=== PATIENT | female | born 1955 ===

== ENCOUNTER 2017-11-26 15:37 | Inpatient (IN) ==
[2017-11-26] MEDS ORDERED: ACETAMINOPHEN 500 MG TABLET PO STA (16:14)
[2017-11-26] MEDS ORDERED: ACETAMINOPHEN 500 MG TABLET ONE (16:15)
[2017-11-26] MEDS ORDERED: ONDANSETRON 4 MG/2 ML VIAL ONE ×2 (16:59→17:55)
[2017-11-26] MEDS ORDERED: DEXTROSE 50% 25 GM/50 ML VIAL IV PRN (17:11)
[2017-11-26] MEDS ORDERED: GLUCAGON 1 MG VIAL IM PRN (17:11)
[2017-11-26] MEDS ORDERED: MORPHINE 2 MG/1 ML SYRINGE IV STA (17:53)
[2017-11-26] MEDS ORDERED: ONDANSETRON 4 MG/2 ML VIAL IV STA (17:53)
[2017-11-26] MEDS ORDERED: MORPHINE 2 MG/1 ML SYRINGE ONE (17:55)
[2017-11-26 18:25] LABS: Troponin I Only 0.096 NG/ML (0.00-0.045)
[2017-11-26] MEDS: INSULIN REGULAR 100 UNIT/ML SUBCUT SCH (21:08)
[2017-11-26] MEDS: ACETAMINOPHEN 325 MG TABLET PO PRN (21:11)
[2017-11-27] MEDS: ACETAMINOPHEN 325 MG TABLET PO PRN ×2 (00:30→06:17)
[2017-11-27] MEDS: cefTRIAXone 1,000 MG in SYRINGE 1 EACH IV SCH (01:24)
[2017-11-27 03:33] LABS: Basophils % 0.1 % (0.0-0.8); Hematocrit 37.2 VOL% (35.7-47.0); Hemoglobin 12.6 GM/DL (12.0-16.0); Immature Granulocytes % 0.5 %; Immature Granulocytes Absolute 0.09 #; Lymphocytes # 0.6 10*3/uL (1.4-4.0); Lymphocytes % 3.6 % (21.3-54.2); Mean Corpuscular HGB Conc 33.9 GM/DL (32-36); Mean Corpuscular Hemoglobin 39 PG (27-34); Mean Corpuscular Volume 114.1 FL (87-102); Mean Platelet Volume 10.1 FL (9.6-12.0); Monocytes % 6.2 % (1.7-12.7); Neutrophils # 14.8 10*3/uL (1.4-7.4); Neutrophils % 89.6 % (38.7-73.9); Red Blood Count 3.26 MC/CUMM (3.8-5.5); Red Cell Distribution Width 13.5 % (9.3-17.3); White Blood Count 16.5 T/CUMM (4-12)
[2017-11-27 03:37] LABS: Platelet Count 116 T/CUMM (130-400)
[2017-11-27 03:59] LABS: Band Neutrophils 4 % (0-10); Lymphocytes 2 % (20-55); Metamyelocytes 1 %; Segmented Neutrophils 89 % (50-85); Total Cells Counted 100
[2017-11-27 04:00] LABS: Albumin 3.3 G/DL (3.4-5.0); Bilirubin,Total 0.5 MG/DL (0.2-1.0); Calcium 7.8 MG/DL (8.5-10.1); Osmolality,Calculated 284.2 MOS/KG (273-304); Potassium 5.9 MMOL/L (3.5-5.1); Total Protein 7.8 G/DL (6.4-8.3)
[2017-11-27 04:01] LABS: Hypochromasia Slight; Platelet Estimate Normal
[2017-11-27] MEDS: INSULIN REGULAR 100 UNIT/ML SUBCUT SCH ×4 (09:03→23:20)
[2017-11-27] MEDS: PANTOPRAZOLE 40 MG TABLET PO SCH (12:11)
[2017-11-27] MEDS ORDERED: VANCOMYCIN INJ 1,000 MG in SODIUM CHLORIDE 0.9% 250 ML IV ONE (15:06)
[2017-11-28] MEDS: cefTRIAXone 1,000 MG in SYRINGE 1 EACH IV SCH (01:00)
[2017-11-28] MEDS ORDERED: LIDOCAINE 1% 20 ML VIAL IM ONE (02:00)
[2017-11-28] MEDS: cefTRIAXone 1,000 MG VIAL IM SCH (03:10)
[2017-11-28 05:03] LABS: Basophils % 0.1 % (0.0-0.8); Eosinophils % 0.1 % (0.00-10.9); Hematocrit 35.5 VOL% (35.7-47.0); Hemoglobin 11.7 GM/DL (12.0-16.0); Immature Granulocytes % 1.1 %; Immature Granulocytes Absolute 0.17 #; Lymphocytes # 1.1 10*3/uL (1.4-4.0); Lymphocytes % 7.5 % (21.3-54.2); Mean Corpuscular Hemoglobin 38 PG (27-34); Mean Corpuscular Volume 115.3 FL (87-102); Mean Platelet Volume 10.5 FL (9.6-12.0); Monocytes # 1.2 10*3/uL (0.11-0.8); Monocytes % 7.7 % (1.7-12.7); Neutrophils # 12.5 10*3/uL (1.4-7.4); Neutrophils % 83.5 % (38.7-73.9); Platelet Count 101 T/CUMM (130-400); Red Blood Count 3.08 MC/CUMM (3.8-5.5); Red Cell Distribution Width 13.5 % (9.3-17.3)
[2017-11-28 05:26] LABS: Band Neutrophils 2 % (0-10); Giant Platelets Few; Hypochromasia 1+; Lymphocytes 4 % (20-55); Ovalocytes Slight; Platelet Estimate Decreased; Segmented Neutrophils 84 % (50-85); Total Cells Counted 100
[2017-11-28] MEDS: ONDANSETRON 4 MG/2 ML VIAL IV PRN ×2 (08:15→23:30)
[2017-11-28] MEDS ORDERED: VANCOMYCIN INJ 1,000 MG in SODIUM CHLORIDE 0.9% 250 ML IV ONE (08:30)
[2017-11-28] MEDS: INSULIN REGULAR 100 UNIT/ML SUBCUT SCH ×3 (13:33→21:41)
[2017-11-28] MEDS: diphenhydrAMINE 2% CREAM 28 GM TUBE TOP PRN (15:15)
[2017-11-28] MEDS ORDERED: VANCOMYCIN 1,000 MG VIAL ONE (16:52)
[2017-11-28] MEDS: PANTOPRAZOLE 40 MG TABLET PO SCH (17:15)
[2017-11-28] MEDS ORDERED: SEVOFLURANE 1 UNIT/15 MINUTE INH ONE (18:05)
[2017-11-28] MEDS ORDERED: fentaNYL 100 MCG/2 ML VIAL ONE (18:05)
[2017-11-28] MEDS ORDERED: SUCCINYLCHOLINE 200 MG/10 ML VIAL ONE (18:05)
[2017-11-28] MEDS ORDERED: ROCURONIUM 100 MG/10 ML VIAL IV ONE (18:05)
[2017-11-28] MEDS ORDERED: ACETAMINOPHEN 1,000 MG/100 ML VIAL IV ONE (18:05)
[2017-11-28] MEDS ORDERED: SODIUM CHLORIDE 0.9% 1,000 ML IV ONE (18:05)
[2017-11-28] MEDS ORDERED: ONDANSETRON 4 MG/2 ML VIAL ONE ×2 (18:05→18:32)
[2017-11-28] MEDS ORDERED: PROPOFOL 200 MG/20 ML VIAL IV ONE (18:05)
[2017-11-28] MEDS: HYDROmorphone 2 MG/1 ML VIAL IV PRN ×4 (18:30→18:54)
[2017-11-28] MEDS ORDERED: ONDANSETRON 4 MG/2 ML VIAL IV PRN (18:30)
[2017-11-28] MEDS ORDERED: HYDROmorphone 2 MG/1 ML VIAL ONE (18:58)
[2017-11-29] MEDS: cefTRIAXone 1,000 MG VIAL IM SCH (02:49)
[2017-11-29] MEDS: cefTRIAXone 1,000 MG in SYRINGE 1 EACH IV SCH (04:54)
[2017-11-29] MEDS: ONDANSETRON ODT 4 MG TABLET PO PRN ×3 (07:46→17:44)
[2017-11-29] MEDS: INSULIN REGULAR 100 UNIT/ML SUBCUT SCH ×4 (07:48→21:16)
[2017-11-29] MEDS: PANTOPRAZOLE 40 MG TABLET PO SCH (09:43)
[2017-11-29] MEDS ORDERED: Propylene Glycol/Peg 400 [Systane Gel Drops] 1 DROP BOTH EYES PRN (12:03)
[2017-11-29] MEDS ORDERED: MIDODRINE 5 MG TABLET PO SCH (12:03)
[2017-11-29] MEDS: SEVELAMER CARBONATE 800 MG TABLET PO SCH ×2 (13:07→17:42)
[2017-11-29] MEDS: DOCUSATE SODIUM 100 MG CAPSULE PO SCH (21:33)
[2017-11-30] MEDS: cefTRIAXone 1,000 MG in SYRINGE 1 EACH IV SCH (04:12)
[2017-11-30 06:42] LABS: Basophils % 0.1 % (0.0-0.8); Eosinophils # 0.2 10*3/uL (0.0-0.87); Eosinophils % 1.7 % (0.00-10.9); Hematocrit 29.3 VOL% (35.7-47.0); Hemoglobin 9.8 GM/DL (12.0-16.0); Immature Granulocytes % 0.8 %; Immature Granulocytes Absolute 0.08 #; Lymphocytes # 1.5 10*3/uL (1.4-4.0); Lymphocytes % 13.8 % (21.3-54.2); Mean Corpuscular HGB Conc 33.4 GM/DL (32-36); Mean Corpuscular Hemoglobin 38 PG (27-34); Mean Corpuscular Volume 114.9 FL (87-102); Monocytes # 0.7 10*3/uL (0.11-0.8); Monocytes % 6.7 % (1.7-12.7); Neutrophils # 8.1 10*3/uL (1.4-7.4); Neutrophils % 76.9 % (38.7-73.9); Platelet Count 126 T/CUMM (130-400); Red Blood Count 2.55 MC/CUMM (3.8-5.5); Red Cell Distribution Width 13.9 % (9.3-17.3); White Blood Count 10.6 T/CUMM (4-12)
[2017-11-30 07:00] LABS: Anisocytosis 1+; Macrocytosis 3+; Platelet Estimate Decreased
[2017-11-30] MEDS: INSULIN REGULAR 100 UNIT/ML SUBCUT SCH ×4 (10:23→22:27)
[2017-11-30] MEDS: SEVELAMER CARBONATE 800 MG TABLET PO SCH ×3 (10:23→18:07)
[2017-11-30] MEDS: ASPIRIN EC 81 MG TABLET PO SCH (10:25)
[2017-11-30] MEDS: MULTIVITAMIN (BEROCCA) TABLET PO SCH (10:25)
[2017-11-30] MEDS: glipiZIDE 5 MG TABLET PO SCH (10:25)
[2017-11-30] MEDS: PANTOPRAZOLE 40 MG TABLET PO SCH (10:25)
[2017-11-30] MEDS: ONDANSETRON ODT 4 MG TABLET PO PRN ×3 (10:25→19:16)
[2017-11-30] MEDS: DOCUSATE SODIUM 100 MG CAPSULE PO SCH ×2 (10:25→22:28)
[2017-12-01] MEDS: ONDANSETRON ODT 4 MG TABLET PO PRN (03:40)
[2017-12-01] MEDS: cefTRIAXone 1,000 MG in SYRINGE 1 EACH IV SCH (05:33)
[2017-12-01] MEDS: INSULIN REGULAR 100 UNIT/ML SUBCUT SCH ×4 (08:30→21:30)
[2017-12-01] MEDS ORDERED: EPOETIN ALFA 2,000 UNIT/1 ML VIAL IV SCH (10:05)
[2017-12-01] MEDS: SEVELAMER CARBONATE 800 MG TABLET PO SCH ×3 (10:36→17:45)
[2017-12-01] MEDS: DOCUSATE SODIUM 100 MG CAPSULE PO SCH ×2 (10:36→20:52)
[2017-12-01] MEDS: glipiZIDE 5 MG TABLET PO SCH (10:36)
[2017-12-01] MEDS: MULTIVITAMIN (BEROCCA) TABLET PO SCH (10:36)
[2017-12-01] MEDS: ASPIRIN EC 81 MG TABLET PO SCH (10:36)
[2017-12-01] MEDS: PANTOPRAZOLE 40 MG TABLET PO SCH (10:37)
[2017-12-01] MEDS: diphenhydrAMINE 2% CREAM 28 GM TUBE TOP PRN (10:37)
[2017-12-01] MEDS ORDERED: VANCOMYCIN INJ 1,250 MG in SODIUM CHLORIDE 0.9% 250 ML IV ONE (18:00)
[2017-12-02] MEDS: cefTRIAXone 1,000 MG in SYRINGE 1 EACH IV SCH (04:33)
[2017-12-02 08:10] LABS: Basophils % 0.3 % (0.0-0.8); Eosinophils # 0.2 10*3/uL (0.0-0.87); Eosinophils % 2.4 % (0.00-10.9); Hematocrit 32.2 VOL% (35.7-47.0); Hemoglobin 10.3 GM/DL (12.0-16.0); Immature Granulocytes Absolute 0.07 #; Lymphocytes # 1.5 10*3/uL (1.4-4.0); Lymphocytes % 22.8 % (21.3-54.2); Mean Corpuscular Hemoglobin 38 PG (27-34); Mean Corpuscular Volume 117.5 FL (87-102); Mean Platelet Volume 10.5 FL (9.6-12.0); Monocytes # 0.7 10*3/uL (0.11-0.8); Monocytes % 10.7 % (1.7-12.7); Neutrophils # 4.3 10*3/uL (1.4-7.4); Neutrophils % 62.8 % (38.7-73.9); Platelet Count 147 T/CUMM (130-400); Red Blood Count 2.74 MC/CUMM (3.8-5.5); Red Cell Distribution Width 13.5 % (9.3-17.3); White Blood Count 6.8 T/CUMM (4-12)
[2017-12-02 08:33] LABS: Calcium 7.7 MG/DL (8.5-10.1); Osmolality,Calculated 277.2 MOS/KG (273-304); Potassium 5.1 MMOL/L (3.5-5.1)
[2017-12-02 08:34] LABS: Eosinophils 1 % (0-10); Giant Platelets Few; Hypochromasia 1+; Lymphocytes 18 % (20-55); Platelet Estimate Normal; Segmented Neutrophils 79 % (50-85); Total Cells Counted 100
[2017-12-02] MEDS: ASPIRIN EC 81 MG TABLET PO SCH (09:02)
[2017-12-02] MEDS: MULTIVITAMIN (BEROCCA) TABLET PO SCH (09:02)
[2017-12-02] MEDS: DOCUSATE SODIUM 100 MG CAPSULE PO SCH ×2 (09:02→21:28)
[2017-12-02] MEDS: PANTOPRAZOLE 40 MG TABLET PO SCH (09:02)
[2017-12-02] MEDS: glipiZIDE 5 MG TABLET PO SCH (09:02)
[2017-12-02] MEDS: SEVELAMER CARBONATE 800 MG TABLET PO SCH ×3 (09:02→16:25)
[2017-12-02] MEDS: INSULIN REGULAR 100 UNIT/ML SUBCUT SCH ×4 (09:03→21:31)
[2017-12-02] MEDS: SILVER SULFADIAZINE 1% CREAM 25 GM TUBE TOP SCH ×2 (10:58→21:28)
[2017-12-03] MEDS: cefTRIAXone 1,000 MG in SYRINGE 1 EACH IV SCH (05:29)
[2017-12-03 07:35] VITALS: BP 161/76
[2017-12-03] MEDS: INSULIN REGULAR 100 UNIT/ML SUBCUT SCH ×2 (08:20→13:01)
[2017-12-03] MEDS: SEVELAMER CARBONATE 800 MG TABLET PO SCH ×2 (08:22→13:01)
[2017-12-03] MEDS: glipiZIDE 5 MG TABLET PO SCH (08:22)
[2017-12-03] MEDS: PANTOPRAZOLE 40 MG TABLET PO SCH (08:22)
[2017-12-03] MEDS: MULTIVITAMIN (BEROCCA) TABLET PO SCH (08:22)
[2017-12-03] MEDS: ASPIRIN EC 81 MG TABLET PO SCH (08:22)
[2017-12-03] MEDS: DOCUSATE SODIUM 100 MG CAPSULE PO SCH (08:22)
[2017-12-03] MEDS: SILVER SULFADIAZINE 1% CREAM 25 GM TUBE TOP SCH (08:23)
[2017-12-03] MEDS ORDERED: VANCOMYCIN INJ 1,000 MG in SODIUM CHLORIDE 0.9% 250 ML IV PRN (11:11)
== END 2017-12-03 15:14 | disposition home or self-care (01) | DRG 853 ==
LOC: EDUNIT# → N.ED 15:37 → N.EDINP 15:37 → N.TELEN 19:15 → SUATTDRO 11-27 15:02 → N.5E 11-29 12:10
PROVIDERS: ADMIT Internal Medicine; ATTEND Family Medicine

== ENCOUNTER 2019-05-27 06:16 | Inpatient (IN) ==
[2019-05-25 16:48] LABS: Basophils % 0.3 % (0.0-0.8); Eosinophils # 0.1 10*3/uL (0.0-0.87); Eosinophils % 1.9 % (0.00-10.9); Hematocrit 29.9 VOL% (35.7-47.0); Hemoglobin 9.7 GM/DL (12.0-16.0); Immature Granulocytes % 0.3 %; Immature Granulocytes Absolute 0.02 #; Lymphocytes # 1.6 10*3/uL (1.4-4.0); Lymphocytes % 22.2 % (21.3-54.2); Mean Corpuscular HGB Conc 32.4 GM/DL (32-36); Mean Corpuscular Volume 109.5 FL (87-102); Mean Platelet Volume 10.1 FL (9.6-12.0); Monocytes % 8.4 % (1.7-12.7); Neutrophils % 66.9 % (38.7-73.9); Platelet Count 135 T/CUMM (130-400); Red Blood Count 2.73 MC/CUMM (3.8-5.5); Red Cell Distribution Width 15.3 % (9.3-17.3); White Blood Count 7.3 T/CUMM (4-12)
[2019-05-25 17:03] LABS: Calcium 8.3 MG/DL (8.5-10.1); Osmolality,Calculated 295.1 MOS/KG (273-304)
[~2019-05-27 06:16] MED LIST: ceFAZolin 1,000 MG VIAL ONE
[2019-05-27] MEDS ORDERED: ceFAZolin 1,000 MG in SYRINGE 1 EACH IV ONE (06:30)
[2019-05-27] MEDS ORDERED: DEXAMETHASONE 4 MG/1 ML VIAL ONE ×2 (07:09→13:24)
[2019-05-27] MEDS ORDERED: BUPIVACAINE MPF 0.25% 30 ML VIAL ONE (07:10)
[2019-05-27] MEDS ORDERED: SCOPOLAMINE 1.5 MG PATCH TRANSDERM ONE ×2 (07:25→07:49)
[2019-05-27] MEDS ORDERED: DIAZEPAM 5 MG TABLET PO ONE (07:25)
[2019-05-27] MEDS ORDERED: FAMOTIDINE 20 MG TABLET PO ONE (07:25)
[2019-05-27] MEDS ORDERED: SODIUM CHLORIDE 0.9% 250 ML IV SCH (07:30)
[2019-05-27] MEDS ORDERED: FAMOTIDINE 20 MG TABLET ONE (07:49)
[2019-05-27] MEDS ORDERED: DIAZEPAM 5 MG TABLET ONE (07:49)
[2019-05-27] MEDS ORDERED: MIDAZOLAM 2 MG/2 ML VIAL ONE (09:11)
[2019-05-27] MEDS ORDERED: LIDOCAINE 1% 20 ML VIAL ONE (09:57)
[2019-05-27] MEDS ORDERED: ISOSULFAN BLUE 5 ML VIAL SUBCUT ONE (09:57)
[2019-05-27] MEDS ORDERED: TISSUE ADHESIVE 1 EACH APPLICATOR TOP ONE (09:57)
[2019-05-27] MEDS ORDERED: BUPIVACAINE 0.5% 50 ML VIAL ONE (09:57)
[2019-05-27] MEDS ORDERED: ACETAMINOPHEN 325 MG TABLET PO PRN (13:11)
[2019-05-27] MEDS ORDERED: HYDROmorphone 2 MG/1 ML VIAL IV PRN ×2 (13:11)
[2019-05-27] MEDS ORDERED: BISACODYL 5 MG TABLET PO PRN (13:11)
[2019-05-27] MEDS ORDERED: ALBUTEROL/IPRATROPIUM 3 ML NEB RESP TX PRN (13:11)
[2019-05-27] MEDS ORDERED: GLUCAGON 1 MG VIAL IM PRN (13:19)
[2019-05-27] MEDS ORDERED: DEXTROSE 10% 25 GM/250 ML BAG IV PRN (13:19)
[2019-05-27] MEDS ORDERED: PROPOFOL 200 MG/20 ML VIAL IV ONE (13:23)
[2019-05-27] MEDS ORDERED: PHENYLEPHRINE 10 MG/1 ML VIAL IV ONE (13:24)
[2019-05-27] MEDS ORDERED: PHENYLEPHRINE 1 MG/10 ML SYRINGE IV ONE (13:24)
[2019-05-27] MEDS ORDERED: SEVOFLURANE 1 UNIT/15 MINUTE INH ONE (13:24)
[2019-05-27] MEDS ORDERED: fentaNYL 100 MCG/2 ML VIAL ONE (13:24)
[2019-05-27] MEDS ORDERED: MIDODRINE 5 MG TABLET PO PRN (13:30)
[2019-05-27] MEDS ORDERED: ONDANSETRON 4 MG/2 ML VIAL IV PRN (13:32)
[2019-05-27] MEDS ORDERED: HYDROmorphone 2 MG/1 ML VIAL ONE (13:43)
[2019-05-27] MEDS ORDERED: ONDANSETRON 4 MG/2 ML VIAL ONE (13:43)
[2019-05-27] MEDS: HYDROmorphone 2 MG/1 ML VIAL IV PRN ×3 (13:46→14:04)
[2019-05-27] MEDS: LACTATED RINGERS 1,000 ML IV SCH ×2 (16:34→23:43)
[2019-05-27] MEDS: SEVELAMER CARBONATE 800 MG TABLET PO SCH (17:21)
[2019-05-27] MEDS: INSULIN LISPRO 100 UNIT/ML SUBCUT SCH (17:21)
[2019-05-27] MEDS: ONDANSETRON 4 MG/2 ML VIAL IV PRN (18:32)
[2019-05-27] MEDS: DOCUSATE SODIUM 100 MG CAPSULE PO SCH (21:08)
[2019-05-27] MEDS: CARVEDILOL 12.5 MG TABLET PO SCH (21:09)
[2019-05-27] MEDS: ceFAZolin 2,000 MG in PREMIX 1 EACH IV SCH (21:09)
[2019-05-28 05:18] LABS: Basophils % 0.1 % (0.0-0.8); Immature Granulocytes % 0.4 %; Immature Granulocytes Absolute 0.04 #; Lymphocytes # 0.6 10*3/uL (1.4-4.0); Lymphocytes % 5.7 % (21.3-54.2); Mean Corpuscular Volume 112.6 FL (87-102); Mean Platelet Volume 10.5 FL (9.6-12.0); Monocytes % 5.4 % (1.7-12.7); Neutrophils % 88.4 % (38.7-73.9); Platelet Count 141 T/CUMM (130-400); Red Blood Count 2.22 MC/CUMM (3.8-5.5); Red Cell Distribution Width 14.6 % (9.3-17.3); White Blood Count 10.1 T/CUMM (4-12)
[2019-05-28 05:44] LABS: Hypochromasia 1+; Ovalocytes Slight; Platelet Estimate Normal
[2019-05-28 05:57] LABS: Calcium 7.3 MG/DL (8.5-10.1); Osmolality,Calculated 298.7 MOS/KG (273-304)
[2019-05-28] MEDS: ceFAZolin 2,000 MG in PREMIX 1 EACH IV SCH (06:02)
[2019-05-28] MEDS ORDERED: EPOETIN ALFA 2,000 UNIT/1 ML VIAL IV SCH (09:00)
[2019-05-28] MEDS: INSULIN LISPRO 100 UNIT/ML SUBCUT SCH ×3 (11:24→17:45)
[2019-05-28] MEDS: DOCUSATE SODIUM 100 MG CAPSULE PO SCH ×2 (11:25→21:02)
[2019-05-28] MEDS: PANTOPRAZOLE 40 MG TABLET PO SCH (11:25)
[2019-05-28] MEDS: glipiZIDE 10 MG TABLET PO SCH (11:25)
[2019-05-28] MEDS: ASPIRIN EC 81 MG TABLET PO SCH (11:25)
[2019-05-28] MEDS: MULTIVITAMIN (BEROCCA) TABLET PO SCH (11:25)
[2019-05-28] MEDS: SEVELAMER CARBONATE 800 MG TABLET PO SCH ×3 (11:25→18:00)
[2019-05-28] MEDS: LISINOPRIL 10 MG TABLET PO SCH (11:25)
[2019-05-28] MEDS: CARVEDILOL 12.5 MG TABLET PO SCH ×2 (11:25→21:02)
[2019-05-29 05:41] LABS: Basophils % 0.1 % (0.0-0.8); Eosinophils # 0.1 10*3/uL (0.0-0.87); Eosinophils % 0.7 % (0.00-10.9); Hematocrit 22.9 VOL% (35.7-47.0); Hemoglobin 7.3 GM/DL (12.0-16.0); Immature Granulocytes % 0.4 %; Immature Granulocytes Absolute 0.03 #; Lymphocytes # 1.6 10*3/uL (1.4-4.0); Lymphocytes % 20.5 % (21.3-54.2); Mean Corpuscular HGB Conc 31.9 GM/DL (32-36); Mean Corpuscular Volume 113.9 FL (87-102); Mean Platelet Volume 10.6 FL (9.6-12.0); Monocytes % 8.4 % (1.7-12.7); Neutrophils % 69.9 % (38.7-73.9); Platelet Count 124 T/CUMM (130-400); Red Blood Count 2.01 MC/CUMM (3.8-5.5); Red Cell Distribution Width 14.9 % (9.3-17.3); White Blood Count 7.6 T/CUMM (4-12)
[2019-05-29 06:08] LABS: Calcium 7.3 MG/DL (8.5-10.1); Osmolality,Calculated 297.3 MOS/KG (273-304)
[2019-05-29 06:10] LABS: Platelet Estimate Adequate
[2019-05-29 06:11] LABS: Anisocytosis 2+; Spherocytes Few
[2019-05-29] MEDS: INSULIN LISPRO 100 UNIT/ML SUBCUT SCH ×3 (08:19→16:44)
[2019-05-29] MEDS: SEVELAMER CARBONATE 800 MG TABLET PO SCH ×3 (08:20→17:26)
[2019-05-29] MEDS: LISINOPRIL 10 MG TABLET PO SCH (08:20)
[2019-05-29] MEDS: ASPIRIN EC 81 MG TABLET PO SCH (08:20)
[2019-05-29] MEDS: CARVEDILOL 12.5 MG TABLET PO SCH ×2 (08:20→21:08)
[2019-05-29] MEDS: glipiZIDE 10 MG TABLET PO SCH (08:20)
[2019-05-29] MEDS: DOCUSATE SODIUM 100 MG CAPSULE PO SCH ×2 (08:20→21:08)
[2019-05-29] MEDS: MULTIVITAMIN (BEROCCA) TABLET PO SCH (08:21)
[2019-05-29] MEDS: PANTOPRAZOLE 40 MG TABLET PO SCH (08:21)
[2019-05-29] MEDS ORDERED: SODIUM CHLORIDE 0.9% 1,000 ML IV PRN (09:05)
[2019-05-29 20:26] LABS: Hemoglobin 10.6 GM/DL (12.0-16.0)
[2019-05-30 06:00] LABS: Basophils % 0.2 % (0.0-0.8); Eosinophils % 0.1 % (0.00-10.9); Hematocrit 29.4 VOL% (35.7-47.0); Hemoglobin 9.4 GM/DL (12.0-16.0); Immature Granulocytes % 0.8 %; Immature Granulocytes Absolute 0.09 #; Lymphocytes # 0.4 10*3/uL (1.4-4.0); Lymphocytes % 3.7 % (21.3-54.2); Mean Corpuscular Volume 107.7 FL (87-102); Mean Platelet Volume 10.3 FL (9.6-12.0); Monocytes % 4.9 % (1.7-12.7); Neutrophils % 90.3 % (38.7-73.9); Platelet Count 130 T/CUMM (130-400); Red Blood Count 2.73 MC/CUMM (3.8-5.5); Red Cell Distribution Width 16.1 % (9.3-17.3); White Blood Count 11.2 T/CUMM (4-12)
[2019-05-30 06:23] LABS: Band Neutrophils 5 % (0-10); Lymphocytes 5 % (20-55); Segmented Neutrophils 84 % (50-85); Total Cells Counted 100
[2019-05-30 06:24] LABS: Anisocytosis 1+; Ovalocytes 1+; Platelet Estimate Adequate
[2019-05-30] MEDS: INSULIN LISPRO 100 UNIT/ML SUBCUT SCH ×3 (09:18→17:04)
[2019-05-30] MEDS: SEVELAMER CARBONATE 800 MG TABLET PO SCH ×3 (09:18→18:00)
[2019-05-30] MEDS: LISINOPRIL 10 MG TABLET PO SCH (09:18)
[2019-05-30] MEDS: MULTIVITAMIN (BEROCCA) TABLET PO SCH (09:18)
[2019-05-30] MEDS: DOCUSATE SODIUM 100 MG CAPSULE PO SCH ×2 (09:19→21:02)
[2019-05-30] MEDS: ASPIRIN EC 81 MG TABLET PO SCH (09:19)
[2019-05-30] MEDS: CARVEDILOL 12.5 MG TABLET PO SCH ×2 (09:19→21:02)
[2019-05-30] MEDS: glipiZIDE 10 MG TABLET PO SCH (09:19)
[2019-05-30] MEDS: PANTOPRAZOLE 40 MG TABLET PO SCH (09:19)
[2019-05-30] MEDS: ONDANSETRON 4 MG/2 ML VIAL IV PRN (17:30)
[2019-05-31] MEDS: SEVELAMER CARBONATE 800 MG TABLET PO SCH ×3 (08:00→17:23)
[2019-05-31] MEDS: INSULIN LISPRO 100 UNIT/ML SUBCUT SCH ×3 (08:02→17:18)
[2019-05-31] MEDS: PANTOPRAZOLE 40 MG TABLET PO SCH (09:00)
[2019-05-31] MEDS: LISINOPRIL 10 MG TABLET PO SCH (09:00)
[2019-05-31] MEDS: CARVEDILOL 12.5 MG TABLET PO SCH ×2 (09:00→20:32)
[2019-05-31] MEDS: DOCUSATE SODIUM 100 MG CAPSULE PO SCH ×2 (09:00→20:32)
[2019-05-31] MEDS: glipiZIDE 10 MG TABLET PO SCH (09:00)
[2019-05-31] MEDS: ASPIRIN EC 81 MG TABLET PO SCH (09:00)
[2019-05-31] MEDS: MULTIVITAMIN (BEROCCA) TABLET PO SCH (09:00)
[2019-06-01] MEDS: INSULIN LISPRO 100 UNIT/ML SUBCUT SCH ×2 (08:41→12:00)
[2019-06-01] MEDS: PANTOPRAZOLE 40 MG TABLET PO SCH (08:42)
[2019-06-01] MEDS: ASPIRIN EC 81 MG TABLET PO SCH (08:42)
[2019-06-01] MEDS: DOCUSATE SODIUM 100 MG CAPSULE PO SCH (08:42)
[2019-06-01] MEDS: SEVELAMER CARBONATE 800 MG TABLET PO SCH ×2 (08:42→12:00)
[2019-06-01] MEDS: MULTIVITAMIN (BEROCCA) TABLET PO SCH (08:42)
[2019-06-01] MEDS: glipiZIDE 10 MG TABLET PO SCH (08:42)
[2019-06-01] MEDS: LISINOPRIL 10 MG TABLET PO SCH (08:45)
[2019-06-01] MEDS: CARVEDILOL 12.5 MG TABLET PO SCH (08:46)
[2019-06-01 12:24] VITALS: BP 142/99
== END 2019-06-01 12:37 | disposition home health service (06) | DRG 579 ==
LOC: N.OR 06:16 → N.SDSINP 06:17 → EDSTATUS 08:15 → N.3E 10:18
PROVIDERS: ADMIT Surgery; ATTEND Surgery

== ENCOUNTER 2019-06-10 07:45 | Inpatient (IN) ==
[~2019-06-10 07:45] MED LIST changes: +ceFAZolin 1,000 MG in SYRINGE 1 EACH IV ONE
[2019-06-10] MEDS ORDERED: DIAZEPAM 5 MG TABLET PO ONE (08:11)
[2019-06-10] MEDS ORDERED: FAMOTIDINE 20 MG TABLET PO ONE (08:11)
[2019-06-10] MEDS ORDERED: ROPIVACAINE 0.5% 30 ML VIAL ONE (08:25)
[2019-06-10] MEDS ORDERED: LIDOCAINE 2% 5 ML VIAL ONE ×2 (08:25→11:13)
[2019-06-10] MEDS ORDERED: MIDAZOLAM 2 MG/2 ML VIAL ONE (08:25)
[2019-06-10] MEDS ORDERED: fentaNYL 100 MCG/2 ML VIAL ONE (08:25)
[2019-06-10] MEDS ORDERED: DEXAMETHASONE 4 MG/1 ML VIAL ONE (08:26)
[2019-06-10 08:37] LABS: Basophils % 0.3 % (0.0-0.8); Eosinophils # 0.1 10*3/uL (0.0-0.87); Eosinophils % 1.2 % (0.00-10.9); Hematocrit 27.4 VOL% (35.7-47.0); Hemoglobin 8.9 GM/DL (12.0-16.0); Immature Granulocytes % 0.5 %; Immature Granulocytes Absolute 0.05 #; Lymphocytes # 1.6 10*3/uL (1.4-4.0); Mean Corpuscular HGB Conc 32.5 GM/DL (32-36); Mean Corpuscular Volume 108.3 FL (87-102); Mean Platelet Volume 9.3 FL (9.6-12.0); Monocytes % 4.2 % (1.7-12.7); Neutrophils % 77.8 % (38.7-73.9); Platelet Count 173 T/CUMM (130-400); Red Blood Count 2.53 MC/CUMM (3.8-5.5); Red Cell Distribution Width 14.8 % (9.3-17.3)
[2019-06-10] MEDS ORDERED: DIAZEPAM 5 MG TABLET ONE (08:52)
[2019-06-10] MEDS ORDERED: FAMOTIDINE 20 MG TABLET ONE (08:52)
[2019-06-10 08:56] LABS: Calcium 8.3 MG/DL (8.5-10.1); Osmolality,Calculated 280.8 MOS/KG (273-304)
[2019-06-10] MEDS ORDERED: LIDOCAINE MPF 1% /EPI 30 ML VIAL ONE (09:51)
[2019-06-10] MEDS ORDERED: LACTATED RINGERS 1,000 ML IV SCH (10:00)
[2019-06-10] MEDS ORDERED: SEVOFLURANE 1 UNIT/15 MINUTE INH ONE (11:13)
[2019-06-10] MEDS ORDERED: GLYCOPYRROLATE 0.4 MG/2 ML VIAL ONE (11:13)
[2019-06-10] MEDS ORDERED: PROPOFOL 200 MG/20 ML VIAL IV ONE (11:13)
[2019-06-10] MEDS ORDERED: PHENYLEPHRINE 1 MG/10 ML SYRINGE IV ONE (11:13)
[2019-06-10] MEDS ORDERED: ONDANSETRON 4 MG/2 ML VIAL ONE (11:13)
[2019-06-10] MEDS ORDERED: ALBUTEROL/IPRATROPIUM 3 ML NEB RESP TX PRN (14:14)
[2019-06-10] MEDS ORDERED: DEXTROSE 10% 250 ML BAG IV PRN (14:14)
[2019-06-10] MEDS ORDERED: GLUCAGON 1 MG VIAL IM PRN (14:14)
[2019-06-10] MEDS ORDERED: MORPHINE 4 MG/1 ML VIAL IV PRN ×2 (14:14)
[2019-06-10] MEDS ORDERED: ACETAMINOPHEN 325 MG TABLET PO PRN (14:14)
[2019-06-10] MEDS ORDERED: ONDANSETRON 4 MG/2 ML VIAL IV PRN (14:14)
[2019-06-10] MEDS ORDERED: BISACODYL 5 MG TABLET PO PRN (14:14)
[2019-06-10] MEDS: INSULIN LISPRO 100 UNIT/ML SUBCUT SCH (18:39)
[2019-06-10] MEDS: ceFAZolin 2,000 MG in PREMIX 1 EACH IV SCH (20:43)
[2019-06-10] MEDS: SEVELAMER CARBONATE 800 MG TABLET PO SCH (22:09)
[2019-06-11] MEDS: ceFAZolin 2,000 MG in PREMIX 1 EACH IV SCH (04:56)
[2019-06-11 05:44] LABS: Basophils % 0.1 % (0.0-0.8); Eosinophils % 0.1 % (0.00-10.9); Hemoglobin 7.5 GM/DL (12.0-16.0); Immature Granulocytes % 0.6 %; Immature Granulocytes Absolute 0.06 #; Lymphocytes # 0.9 10*3/uL (1.4-4.0); Lymphocytes % 8.3 % (21.3-54.2); Mean Corpuscular HGB Conc 31.3 GM/DL (32-36); Mean Corpuscular Volume 108.6 FL (87-102); Mean Platelet Volume 9.9 FL (9.6-12.0); Monocytes % 5.5 % (1.7-12.7); Neutrophils % 85.4 % (38.7-73.9); Platelet Count 154 T/CUMM (130-400); Red Blood Count 2.21 MC/CUMM (3.8-5.5); Red Cell Distribution Width 14.5 % (9.3-17.3); White Blood Count 10.6 T/CUMM (4-12)
[2019-06-11 06:06] LABS: Calcium 7.2 MG/DL (8.5-10.1); Osmolality,Calculated 291.1 MOS/KG (273-304)
[2019-06-11] MEDS ORDERED: ENOXAPARIN 30 MG/0.3 ML SYRINGE SUBCUT SCH (08:00)
[2019-06-11] MEDS ORDERED: PANTOPRAZOLE 40 MG TABLET PO SCH (09:00)
[2019-06-11] MEDS: INSULIN LISPRO 100 UNIT/ML SUBCUT SCH ×3 (09:25→18:55)
[2019-06-11] MEDS: SEVELAMER CARBONATE 800 MG TABLET PO SCH ×3 (09:25→18:55)
[2019-06-11 11:46] VITALS: BP 147/65
== END 2019-06-11 17:55 | disposition home or self-care (01) | DRG 901 ==
LOC: N.OR 07:45 → N.SDSINP 07:48 → N.3E 15:06
PROVIDERS: ADMIT Surgery; ATTEND Surgery

== ENCOUNTER 2019-12-21 18:19 | Inpatient (IN) ==
[2019-12-21] MEDS ORDERED: PIPERACILLIN/TAZOBACTAM 3,375 MG in SODIUM CHLORIDE 0.9% 100 ML IV STA (18:48)
[2019-12-21 19:37] LABS: Basophils % 0.5 % (0.0-0.8); Eosinophils # 0.2 10*3/uL (0.0-0.87); Eosinophils % 2.1 % (0.00-10.9); Hematocrit 31.4 VOL% (35.7-47.0); Hemoglobin 10.4 GM/DL (12.0-16.0); Immature Granulocytes % 0.4 %; Immature Granulocytes Absolute 0.03 #; Lymphocytes # 1.4 10*3/uL (1.4-4.0); Lymphocytes % 17.9 % (21.3-54.2); Mean Corpuscular HGB Conc 33.1 GM/DL (32-36); Mean Corpuscular Volume 113.8 FL (87-102); Mean Platelet Volume 9.4 FL (9.6-12.0); Monocytes % 7.4 % (1.7-12.7); Neutrophils % 71.7 % (38.7-73.9); Platelet Count 223 T/CUMM (130-400); Red Blood Count 2.76 MC/CUMM (3.8-5.5); Red Cell Distribution Width 14.9 % (9.3-17.3)
[2019-12-21 19:47] LABS: PT Patient Result 10.7 SECS (9.6-12.2)
[2019-12-21 20:03] LABS: Albumin 3.1 G/DL (3.4-5.0); Bilirubin,Total 0.4 MG/DL (0.2-1.0); Osmolality,Calculated 281.4 MOS/KG (273-304); Total Protein 7.9 G/DL (6.4-8.3)
[2019-12-21 20:39] LABS: Anisocytosis 2+; Macrocytosis 2+; Polychromasia Few
[2019-12-21 20:40] LABS: Microcytosis Slight; Platelet Estimate Normal
[2019-12-21] MEDS ORDERED: MORPHINE 4 MG/1 ML VIAL IV PRN (22:28)
[2019-12-21] MEDS ORDERED: ONDANSETRON 4 MG/2 ML VIAL IV PRN (22:28)
[2019-12-21] MEDS ORDERED: GLUCAGON 1 MG VIAL IM PRN (22:28)
[2019-12-21] MEDS ORDERED: DEXTROSE 50% 25 GM/50 ML SYRINGE IV PRN (22:28)
[2019-12-21] MEDS ORDERED: ACETAMINOPHEN 325 MG TABLET PO PRN (22:28)
[2019-12-21] MEDS ORDERED: VANCOMYCIN INJ 750 MG in SODIUM CHLORIDE 0.9% 250 ML IV PRN (22:43)
[2019-12-21] MEDS ORDERED: VANCOMYCIN INJ 2,000 MG in SODIUM CHLORIDE 0.9% 500 ML IV ONE (23:00)
[2019-12-21] MEDS: DOCUSATE SODIUM 100 MG CAPSULE PO SCH (23:05)
[2019-12-21] MEDS: carvediloL 12.5 MG TABLET PO SCH (23:05)
[2019-12-22 05:15] LABS: Basophils % 0.4 % (0.0-0.8); Eosinophils # 0.2 10*3/uL (0.0-0.87); Eosinophils % 2.6 % (0.00-10.9); Hematocrit 29.2 VOL% (35.7-47.0); Hemoglobin 9.4 GM/DL (12.0-16.0); Immature Granulocytes % 0.7 %; Immature Granulocytes Absolute 0.05 #; Lymphocytes # 1.5 10*3/uL (1.4-4.0); Lymphocytes % 20.5 % (21.3-54.2); Mean Corpuscular HGB Conc 32.2 GM/DL (32-36); Mean Corpuscular Volume 114.5 FL (87-102); Mean Platelet Volume 9.6 FL (9.6-12.0); Monocytes % 6.1 % (1.7-12.7); Neutrophils % 69.7 % (38.7-73.9); Platelet Count 208 T/CUMM (130-400); Red Blood Count 2.55 MC/CUMM (3.8-5.5); Red Cell Distribution Width 14.9 % (9.3-17.3); White Blood Count 7.4 T/CUMM (4-12)
[2019-12-22 05:37] LABS: Calcium 9.5 MG/DL (8.5-10.1); Osmolality,Calculated 286.2 MOS/KG (273-304)
[2019-12-22] MEDS: amLODIPine 10 MG TABLET PO SCH (08:32)
[2019-12-22] MEDS: DOCUSATE SODIUM 100 MG CAPSULE PO SCH ×2 (08:32→20:22)
[2019-12-22] MEDS: lisinopriL 10 MG TABLET PO SCH (08:32)
[2019-12-22] MEDS: ANASTROZOLE 1 MG TABLET PO SCH (08:32)
[2019-12-22] MEDS: SEVELAMER CARBONATE 800 MG TABLET PO SCH ×3 (08:32→17:40)
[2019-12-22] MEDS: carvediloL 12.5 MG TABLET PO SCH (08:32)
[2019-12-22] MEDS: INSULIN REGULAR 100 UNIT/ML SUBCUT SCH ×3 (08:32→17:40)
[2019-12-22] MEDS: MULTIVITAMIN (BEROCCA) TABLET PO SCH (08:33)
[2019-12-22] MEDS: FOLIC ACID 1 MG TABLET PO SCH (08:33)
[2019-12-22] MEDS: PIPERACILLIN/TAZOBACTAM 3,375 MG in SODIUM CHLORIDE 0.9% 100 ML IV SCH ×2 (08:34→20:22)
[2019-12-22] MEDS ORDERED: BUPIVACAINE MPF 0.25% 30 ML VIAL ONE (08:46)
[2019-12-22] MEDS ORDERED: LIDOCAINE 1%/EPI INJ 20 ML VIAL ONE (08:46)
[2019-12-22] MEDS ORDERED: LIDOCAINE 1% 20 ML VIAL ONE (08:47)
[2019-12-22] MEDS ORDERED: SODIUM CHLORIDE 0.9% 250 ML IV SCH (09:30)
[2019-12-22] MEDS ORDERED: fentaNYL 100 MCG/2 ML VIAL ONE (10:18)
[2019-12-22] MEDS ORDERED: LIDOCAINE 2% 5 ML VIAL ONE (10:18)
[2019-12-22] MEDS ORDERED: SEVOFLURANE 1 UNIT/15 MINUTE INH ONE (10:18)
[2019-12-22] MEDS ORDERED: propofoL 200 MG/20 ML VIAL IV ONE (10:18)
[2019-12-22] MEDS ORDERED: ONDANSETRON 4 MG/2 ML VIAL ONE (10:19)
[2019-12-22] MEDS ORDERED: ePHEDrine 50 MG/ML AMP ONE (10:19)
[2019-12-22] MEDS ORDERED: MIDAZOLAM 2 MG/2 ML VIAL ONE (10:19)
[2019-12-22] MEDS ORDERED: EPOETIN ALFA-EPBX 2,000 UNIT/ML VIAL IV PRN (15:58)
[2019-12-22] MEDS ORDERED: VANCOMYCIN INJ 750 MG in SODIUM CHLORIDE 0.9% 250 ML IV ONE (17:00)
[2019-12-23 06:02] LABS: Basophils % 0.3 % (0.0-0.8); Eosinophils # 0.3 10*3/uL (0.0-0.87); Eosinophils % 4.1 % (0.00-10.9); Hematocrit 29.3 VOL% (35.7-47.0); Hemoglobin 9.5 GM/DL (12.0-16.0); Immature Granulocytes % 0.5 %; Immature Granulocytes Absolute 0.04 #; Lymphocytes # 1.6 10*3/uL (1.4-4.0); Lymphocytes % 21.1 % (21.3-54.2); Mean Corpuscular HGB Conc 32.4 GM/DL (32-36); Mean Corpuscular Volume 114.9 FL (87-102); Mean Platelet Volume 9.7 FL (9.6-12.0); Monocytes % 5.5 % (1.7-12.7); Neutrophils % 68.5 % (38.7-73.9); Platelet Count 189 T/CUMM (130-400); Red Blood Count 2.55 MC/CUMM (3.8-5.5); Red Cell Distribution Width 14.9 % (9.3-17.3); White Blood Count 7.8 T/CUMM (4-12)
[2019-12-23 06:20] LABS: Hypochromasia 1+; Ovalocytes Slight; Platelet Estimate Adequate
[2019-12-23 06:24] LABS: Calcium 8.9 MG/DL (8.5-10.1); Osmolality,Calculated 289.1 MOS/KG (273-304)
[2019-12-23] MEDS: INSULIN REGULAR 100 UNIT/ML SUBCUT SCH ×3 (07:58→17:55)
[2019-12-23] MEDS: DOCUSATE SODIUM 100 MG CAPSULE PO SCH (10:14)
[2019-12-23] MEDS: ANASTROZOLE 1 MG TABLET PO SCH (10:14)
[2019-12-23] MEDS: MULTIVITAMIN (BEROCCA) TABLET PO SCH (10:14)
[2019-12-23] MEDS: SEVELAMER CARBONATE 800 MG TABLET PO SCH ×3 (10:14→17:55)
[2019-12-23] MEDS: PIPERACILLIN/TAZOBACTAM 3,375 MG in SODIUM CHLORIDE 0.9% 100 ML IV SCH (10:15)
[2019-12-23] MEDS: amLODIPine 10 MG TABLET PO SCH (10:15)
[2019-12-23] MEDS: FOLIC ACID 1 MG TABLET PO SCH (10:15)
[2019-12-23] MEDS: lisinopriL 10 MG TABLET PO SCH (10:15)
[2019-12-23 13:12] VITALS: BP 133/52
[2019-12-24] MEDS ORDERED: SODIUM HYPOCHLORITE 0.25% IRRIG 473 ML BOTTLE TOP SCH (09:00)
[2019-12-24] MEDS ORDERED: CHLORHEXIDINE 4% SOLN 118 ML BOTTLE TOP SCH (09:00)
== END 2019-12-23 17:55 | disposition home health service (06) | DRG 264 ==
LOC: EDUNIT# → EDBD → N.ED 18:19 → N.EDINP 20:24 → N.3E 20:39
PROVIDERS: ADMIT Family Medicine; ATTEND Family Medicine

== ENCOUNTER 2020-11-15 12:09 | Inpatient (IN) ==
[2020-11-15] MEDS ORDERED: GLUCAGON 1 MG VIAL IM PRN (15:16)
[2020-11-15] MEDS ORDERED: AZITHROMYCIN INJ 500 MG in SODIUM CHLORIDE 0.9% 250 ML IV ONE (15:16)
[2020-11-15] MEDS ORDERED: DEXTROSE 50% 25 GM/50 ML VIAL IV PRN (15:16)
[2020-11-15 15:58] LABS: ABG Base Excess 2.4 MMOL/L (-2.5-2.5); ABG HCO3 26.6 MMOL/L (20-26); ABG Oxygen Saturation 97.8 % (95-100); ABG PCO2 42.1 MM HG (35-48); ABG PH 7.417 (7.35-7.45); ABG PO2 97.6 MM HG (80-95); ABG TCO2 25.5 MMOL/L (23-27)
[2020-11-15] MEDS: DEXAMETHASONE 4 MG/1 ML VIAL IV SCH (17:54)
[2020-11-15 17:55] LABS: Albumin 2.8 G/DL (3.4-5.0); Bilirubin,Total 0.5 MG/DL (0.2-1.0); Calcium 8.5 MG/DL (8.5-10.1); Ferritin 1386.1 ng/ml (8-252); Osmolality,Calculated 296.8 MOS/KG (273-304); Potassium 3.6 MMOL/L (3.5-5.1); Total Protein 7.1 G/DL (6.4-8.3)
[2020-11-15] MEDS: SEVELAMER CARBONATE 800 MG TABLET PO SCH (17:55)
[2020-11-15] MEDS: INSULIN LISPRO 100 UNIT/ML SUBCUT SCH ×2 (17:55→21:53)
[2020-11-15] MEDS: HEPARIN 5,000 UNIT/1 ML VIAL SUBCUT SCH (17:55)
[2020-11-15 18:00] LABS: Troponin I 0.464 NG/ML (0.00-0.045)
[2020-11-15 18:51] LABS: Basophils % 0.3 % (0.0-0.8); Eosinophils % 0.1 % (0.00-10.9); Hematocrit 24.1 VOL% (35.7-47.0); Hemoglobin 7.9 GM/DL (12.0-16.0); Immature Granulocytes % 0.6 %; Immature Granulocytes Absolute 0.04 #; Lymphocytes # 0.9 10*3/uL (1.4-4.0); Lymphocytes % 12.4 % (21.3-54.2); Mean Corpuscular HGB Conc 32.8 GM/DL (32-36); Mean Corpuscular Volume 110.6 FL (87-102); Monocytes % 6.2 % (1.7-12.7); NRBC # 0.04 10*3/uL; Neutrophils % 80.4 % (38.7-73.9); Platelet Count 72 T/CUMM (130-400); Red Blood Count 2.18 MC/CUMM (3.8-5.5); Red Cell Distribution Width 15.1 % (9.3-17.3)
[2020-11-15 18:58] LABS: INR 1.1; PT Patient Result 11.7 SECS (9.8-11.9)
[2020-11-15 19:31] LABS: Band Neutrophils 3 % (0-10); Lymphocytes 14 % (20-55); Macrocytosis 2+; Segmented Neutrophils 82 % (50-85); Total Cells Counted 100
[2020-11-15 19:32] LABS: Hypochromasia 1+; Polychromasia 1+
[2020-11-15 19:33] LABS: Anisocytosis 1+; Ovalocytes 1+; Poikilocytosis 1+; Toxic Granulation 1+
[2020-11-15 19:35] LABS: Platelet Estimate Adequate
[2020-11-15] MEDS: ASCORBIC ACID 500 MG TABLET PO SCH (21:55)
[2020-11-15] MEDS: FAMOTIDINE 20 MG TABLET PO SCH (21:55)
[2020-11-16] MEDS: HEPARIN 5,000 UNIT/1 ML VIAL SUBCUT SCH ×3 (00:30→17:35)
[2020-11-16] MEDS ORDERED: SODIUM CHLORIDE 0.9% 1,000 ML IV PRN ×2 (08:44→11:01)
[2020-11-16] MEDS ORDERED: cefTRIAXone 1,000 MG in SYRINGE 1 EACH IV SCH (09:00)
[2020-11-16 09:35] LABS: Basophils % 0.1 % (0.0-0.8); Hematocrit 22.3 VOL% (35.7-47.0); Hemoglobin 7.5 GM/DL (12.0-16.0); Immature Granulocytes % 1.2 %; Lymphocytes # 0.5 10*3/uL (1.4-4.0); Lymphocytes % 5.4 % (21.3-54.2); Mean Corpuscular HGB Conc 33.6 GM/DL (32-36); Mean Corpuscular Volume 107.7 FL (87-102); Mean Platelet Volume 11.7 FL (9.6-12.0); Monocytes % 1.6 % (1.7-12.7); NRBC # 0.03 10*3/uL; Neutrophils % 91.7 % (38.7-73.9); Platelet Count 69 T/CUMM (130-400); Red Blood Count 2.07 MC/CUMM (3.8-5.5); Red Cell Distribution Width 14.9 % (9.3-17.3); White Blood Count 8.5 T/CUMM (4-12)
[2020-11-16] MEDS: DEXAMETHASONE 4 MG/1 ML VIAL IV SCH (09:43)
[2020-11-16] MEDS: INSULIN LISPRO 100 UNIT/ML SUBCUT SCH ×4 (09:43→21:55)
[2020-11-16] MEDS: SEVELAMER CARBONATE 800 MG TABLET PO SCH ×3 (09:43→17:36)
[2020-11-16 09:53] LABS: Band Neutrophils 3 % (0-10); Hypochromasia 2+; Lymphocytes 4 % (20-55); Microcytosis 1+; Platelet Estimate Decreased; Segmented Neutrophils 89 % (50-85); Total Cells Counted 100
[2020-11-16 09:54] LABS: Ovalocytes Slight
[2020-11-16 10:09] LABS: Albumin 2.8 G/DL (3.4-5.0); Bilirubin,Total 0.4 MG/DL (0.2-1.0); Calcium 8.1 MG/DL (8.5-10.1); Potassium 3.6 MMOL/L (3.5-5.1); Total Protein 7.2 G/DL (6.4-8.3)
[2020-11-16] MEDS: cefTRIAXone 1,000 MG in SYRINGE 1 EACH IV SCH (14:00)
[2020-11-16] MEDS: FAMOTIDINE 20 MG TABLET PO SCH ×2 (14:01→21:55)
[2020-11-16] MEDS: CETIRIZINE 10 MG TABLET PO SCH (14:01)
[2020-11-16] MEDS: ASCORBIC ACID 500 MG TABLET PO SCH ×2 (14:01→21:55)
[2020-11-16] MEDS: CHOLECALCIFEROL 1,000 UNIT TABLET PO SCH (14:01)
[2020-11-16] MEDS: AZITHROMYCIN 250 MG TABLET PO SCH (14:02)
[2020-11-16] MEDS: ZINC GLUCONATE 50 MG TABLET PO SCH (14:02)
[2020-11-16] MEDS ORDERED: EPOETIN ALFA-EPBX 10,000 UNIT/ML VIAL IV PRN (16:23)
[2020-11-16] MEDS: ACETAMINOPHEN 500 MG TABLET PO PRN (16:38)
[2020-11-16] MEDS ORDERED: ACETAMINOPHEN 325 MG TABLET PO PRN (18:01)
[2020-11-16] MEDS ORDERED: ABEMACICLIB 100 MG PO SCH (21:00)
[2020-11-16] MEDS: carvediloL 12.5 MG TABLET PO SCH (21:55)
[2020-11-17] MEDS: HEPARIN 5,000 UNIT/1 ML VIAL SUBCUT SCH ×3 (01:46→17:09)
[2020-11-17] MEDS: hydrALAZINE 20 MG/1 ML VIAL IV PRN (04:30)
[2020-11-17 06:46] LABS: Basophils % 0.3 % (0.0-0.8); Hemoglobin 8.8 GM/DL (12.0-16.0); Immature Granulocytes % 0.9 %; Immature Granulocytes Absolute 0.07 #; Lymphocytes # 0.7 10*3/uL (1.4-4.0); Lymphocytes % 9.5 % (21.3-54.2); Mean Corpuscular HGB Conc 33.8 GM/DL (32-36); Mean Platelet Volume 10.8 FL (9.6-12.0); Monocytes % 1.2 % (1.7-12.7); NRBC # 0.04 10*3/uL; Neutrophils % 88.1 % (38.7-73.9); Red Cell Distribution Width 18.9 % (9.3-17.3); White Blood Count 7.8 T/CUMM (4-12)
[2020-11-17 06:59] LABS: Platelet Count 59 T/CUMM (130-400); Red Blood Count 2.55 MC/CUMM (3.8-5.5)
[2020-11-17 07:07] LABS: Hypochromasia 2+; Microcytosis 1+; Platelet Estimate Decreased
[2020-11-17 07:11] LABS: Albumin 2.7 G/DL (3.4-5.0); Bilirubin,Total 0.6 MG/DL (0.2-1.0); Calcium 7.9 MG/DL (8.5-10.1); Ferritin 1793.6 ng/ml (8-252); Osmolality,Calculated 282.1 MOS/KG (273-304); Potassium 3.3 MMOL/L (3.5-5.1); Total Protein 7.4 G/DL (6.4-8.3)
[2020-11-17] MEDS ORDERED: MIDODRINE 5 MG TABLET PO SCH (09:00)
[2020-11-17] MEDS: INSULIN LISPRO 100 UNIT/ML SUBCUT SCH ×4 (09:38→21:00)
[2020-11-17] MEDS: ANASTROZOLE 1 MG TABLET PO SCH (09:39)
[2020-11-17] MEDS: cefTRIAXone 1,000 MG in SYRINGE 1 EACH IV SCH (09:39)
[2020-11-17] MEDS: DEXAMETHASONE 4 MG/1 ML VIAL IV SCH (09:39)
[2020-11-17] MEDS: ZINC GLUCONATE 50 MG TABLET PO SCH (09:40)
[2020-11-17] MEDS: FOLIC ACID 1 MG TABLET PO SCH (09:41)
[2020-11-17] MEDS: amLODIPine 10 MG TABLET PO SCH (09:41)
[2020-11-17] MEDS: carvediloL 12.5 MG TABLET PO SCH ×2 (09:41→17:09)
[2020-11-17] MEDS: ASPIRIN EC 81 MG TABLET PO SCH (09:41)
[2020-11-17] MEDS: SEVELAMER CARBONATE 800 MG TABLET PO SCH ×3 (09:41→17:09)
[2020-11-17] MEDS: ASCORBIC ACID 500 MG TABLET PO SCH ×2 (09:41→21:00)
[2020-11-17] MEDS: CHOLECALCIFEROL 1,000 UNIT TABLET PO SCH (09:41)
[2020-11-17] MEDS: [UNRECOGNIZED DRUG - REMARK] PO SCH (09:42)
[2020-11-17] MEDS: CETIRIZINE 10 MG TABLET PO SCH (09:42)
[2020-11-17] MEDS: AZITHROMYCIN 250 MG TABLET PO SCH (09:42)
[2020-11-17] MEDS: MULTIVITAMIN (BEROCCA) TABLET PO SCH (09:42)
[2020-11-17] MEDS: ACETAMINOPHEN 500 MG TABLET PO PRN ×2 (09:42→12:15)
[2020-11-17] MEDS: lisinopriL 10 MG TABLET PO SCH (09:42)
[2020-11-17] MEDS: FAMOTIDINE 20 MG TABLET PO SCH ×2 (09:42→21:00)
[2020-11-17] MEDS: PIPERACILLIN/TAZOBACTAM 3,375 MG in SODIUM CHLORIDE 0.9% 100 ML IV SCH (17:09)
[2020-11-18] MEDS: HEPARIN 5,000 UNIT/1 ML VIAL SUBCUT SCH ×3 (00:17→16:28)
[2020-11-18] MEDS: PIPERACILLIN/TAZOBACTAM 3,375 MG in SODIUM CHLORIDE 0.9% 100 ML IV SCH ×2 (04:33→16:26)
[2020-11-18] MEDS: ASCORBIC ACID 500 MG TABLET PO SCH ×2 (08:45→20:42)
[2020-11-18] MEDS: AZITHROMYCIN 250 MG TABLET PO SCH (08:45)
[2020-11-18] MEDS: ASPIRIN EC 81 MG TABLET PO SCH (08:45)
[2020-11-18] MEDS: SEVELAMER CARBONATE 800 MG TABLET PO SCH ×3 (08:45→16:25)
[2020-11-18] MEDS: CHOLECALCIFEROL 1,000 UNIT TABLET PO SCH (08:45)
[2020-11-18] MEDS: MULTIVITAMIN (BEROCCA) TABLET PO SCH (08:45)
[2020-11-18] MEDS: ZINC GLUCONATE 50 MG TABLET PO SCH (08:46)
[2020-11-18] MEDS: FOLIC ACID 1 MG TABLET PO SCH (08:46)
[2020-11-18] MEDS: FAMOTIDINE 20 MG TABLET PO SCH ×2 (08:46→20:41)
[2020-11-18] MEDS: CETIRIZINE 10 MG TABLET PO SCH (08:46)
[2020-11-18] MEDS: amLODIPine 10 MG TABLET PO SCH (08:46)
[2020-11-18] MEDS: ANASTROZOLE 1 MG TABLET PO SCH (08:47)
[2020-11-18] MEDS: lisinopriL 10 MG TABLET PO SCH (08:47)
[2020-11-18] MEDS: carvediloL 12.5 MG TABLET PO SCH ×2 (08:47→16:25)
[2020-11-18] MEDS: DEXAMETHASONE 4 MG/1 ML VIAL IV SCH (08:48)
[2020-11-18] MEDS: INSULIN LISPRO 100 UNIT/ML SUBCUT SCH ×4 (08:48→20:41)
[2020-11-18 08:50] LABS: Basophils % 0.2 % (0.0-0.8); Hematocrit 22.4 VOL% (35.7-47.0); Hemoglobin 7.5 GM/DL (12.0-16.0); Immature Granulocytes % 1.5 %; Immature Granulocytes Absolute 0.08 #; Lymphocytes # 0.4 10*3/uL (1.4-4.0); Mean Corpuscular HGB Conc 33.5 GM/DL (32-36); Mean Corpuscular Volume 102.8 FL (87-102); Mean Platelet Volume 11.8 FL (9.6-12.0); Monocytes % 3.9 % (1.7-12.7); NRBC # 0.02 10*3/uL; Neutrophils % 86.4 % (38.7-73.9); Red Blood Count 2.18 MC/CUMM (3.8-5.5); Red Cell Distribution Width 18.2 % (9.3-17.3); White Blood Count 5.4 T/CUMM (4-12)
[2020-11-18 08:54] LABS: Platelet Count 50 T/CUMM (130-400)
[2020-11-18 09:20] LABS: Albumin 2.7 G/DL (3.4-5.0); Bilirubin,Total 0.6 MG/DL (0.2-1.0); Calcium 7.5 MG/DL (8.5-10.1); Osmolality,Calculated 294.2 MOS/KG (273-304); Potassium 3.9 MMOL/L (3.5-5.1); Total Protein 7.2 G/DL (6.4-8.3)
[2020-11-18] MEDS: [UNRECOGNIZED DRUG - REMARK] PO SCH (10:04)
[2020-11-19] MEDS: HEPARIN 5,000 UNIT/1 ML VIAL SUBCUT SCH ×4 (01:00→23:58)
[2020-11-19] MEDS: ACETAMINOPHEN 500 MG TABLET PO PRN ×2 (01:03→08:50)
[2020-11-19] MEDS: PIPERACILLIN/TAZOBACTAM 3,375 MG in SODIUM CHLORIDE 0.9% 100 ML IV SCH ×2 (05:08→17:44)
[2020-11-19 06:54] LABS: Basophils % 0.2 % (0.0-0.8); Hematocrit 24.7 VOL% (35.7-47.0); Hemoglobin 8.2 GM/DL (12.0-16.0); Immature Granulocytes Absolute 0.09 #; Lymphocytes # 0.5 10*3/uL (1.4-4.0); Lymphocytes % 10.9 % (21.3-54.2); Mean Corpuscular HGB Conc 33.2 GM/DL (32-36); Mean Corpuscular Volume 102.1 FL (87-102); Mean Platelet Volume 11.4 FL (9.6-12.0); Monocytes % 4.8 % (1.7-12.7); NRBC # 0.04 10*3/uL; Neutrophils % 82.1 % (38.7-73.9); Red Blood Count 2.42 MC/CUMM (3.8-5.5); Red Cell Distribution Width 17.2 % (9.3-17.3); White Blood Count 4.6 T/CUMM (4-12)
[2020-11-19 06:57] LABS: Platelet Count 54 T/CUMM (130-400)
[2020-11-19 07:17] LABS: Hypochromasia 1+; Microcytosis 1+; Ovalocytes Slight; Platelet Estimate Decreased
[2020-11-19 07:27] LABS: Ferritin 3072.1 ng/ml (8-252)
[2020-11-19] MEDS: guaiFENesin/CODEINE 5 ML LIQUID PO PRN (08:47)
[2020-11-19] MEDS: DEXAMETHASONE 4 MG/1 ML VIAL IV SCH (08:48)
[2020-11-19] MEDS: MULTIVITAMIN (BEROCCA) TABLET PO SCH (08:48)
[2020-11-19] MEDS: SEVELAMER CARBONATE 800 MG TABLET PO SCH ×3 (08:48→17:44)
[2020-11-19] MEDS: INSULIN LISPRO 100 UNIT/ML SUBCUT SCH ×4 (08:48→21:14)
[2020-11-19] MEDS: CHOLECALCIFEROL 1,000 UNIT TABLET PO SCH (08:48)
[2020-11-19] MEDS: CETIRIZINE 10 MG TABLET PO SCH (08:49)
[2020-11-19] MEDS: ASPIRIN EC 81 MG TABLET PO SCH (08:49)
[2020-11-19] MEDS: ANASTROZOLE 1 MG TABLET PO SCH (08:49)
[2020-11-19] MEDS: FOLIC ACID 1 MG TABLET PO SCH (08:49)
[2020-11-19] MEDS: FAMOTIDINE 20 MG TABLET PO SCH ×2 (08:49→21:15)
[2020-11-19] MEDS: ZINC GLUCONATE 50 MG TABLET PO SCH (08:49)
[2020-11-19] MEDS: ASCORBIC ACID 500 MG TABLET PO SCH ×2 (08:49→21:15)
[2020-11-19] MEDS: lisinopriL 10 MG TABLET PO SCH (08:49)
[2020-11-19] MEDS: carvediloL 12.5 MG TABLET PO SCH ×2 (08:49→17:44)
[2020-11-19] MEDS: AZITHROMYCIN 250 MG TABLET PO SCH (08:49)
[2020-11-19] MEDS: amLODIPine 10 MG TABLET PO SCH (08:50)
[2020-11-19] MEDS: [UNRECOGNIZED DRUG - REMARK] PO SCH (09:16)
[2020-11-20] MEDS: PIPERACILLIN/TAZOBACTAM 3,375 MG in SODIUM CHLORIDE 0.9% 100 ML IV SCH ×2 (04:52→17:30)
[2020-11-20 05:51] LABS: Hemoglobin 8.1 GM/DL (12.0-16.0); Immature Granulocytes % 5.2 %; Immature Granulocytes Absolute 0.25 #; Lymphocytes # 0.5 10*3/uL (1.4-4.0); Lymphocytes % 10.8 % (21.3-54.2); Mean Corpuscular HGB Conc 32.4 GM/DL (32-36); Mean Platelet Volume 11.4 FL (9.6-12.0); Monocytes % 5.8 % (1.7-12.7); NRBC # 0.05 10*3/uL; Neutrophils % 78.2 % (38.7-73.9); Platelet Count 60 T/CUMM (130-400); Red Blood Count 2.38 MC/CUMM (3.8-5.5); Red Cell Distribution Width 17.5 % (9.3-17.3); White Blood Count 4.8 T/CUMM (4-12)
[2020-11-20 06:40] LABS: Anisocytosis 1+; Hypochromasia 1+; Lymphocytes 10 % (20-55); Metamyelocytes 1 %; Microcytosis 1+; Nucleated Red Blood Cells 1 (0-5); Ovalocytes Few; Segmented Neutrophils 84 % (50-85); Total Cells Counted 100
[2020-11-20 06:41] LABS: Platelet Estimate Decreased
[2020-11-20] MEDS: CHOLECALCIFEROL 1,000 UNIT TABLET PO SCH (09:26)
[2020-11-20] MEDS: ASCORBIC ACID 500 MG TABLET PO SCH ×2 (09:26→21:31)
[2020-11-20] MEDS: SEVELAMER CARBONATE 800 MG TABLET PO SCH ×2 (09:26→11:48)
[2020-11-20] MEDS: ANASTROZOLE 1 MG TABLET PO SCH (09:26)
[2020-11-20] MEDS: amLODIPine 10 MG TABLET PO SCH (09:27)
[2020-11-20] MEDS: ASPIRIN EC 81 MG TABLET PO SCH (09:27)
[2020-11-20] MEDS: FAMOTIDINE 20 MG TABLET PO SCH ×2 (09:27→21:31)
[2020-11-20] MEDS: ZINC GLUCONATE 50 MG TABLET PO SCH (09:27)
[2020-11-20] MEDS: lisinopriL 10 MG TABLET PO SCH (09:27)
[2020-11-20] MEDS: FOLIC ACID 1 MG TABLET PO SCH (09:27)
[2020-11-20] MEDS: MULTIVITAMIN (BEROCCA) TABLET PO SCH (09:27)
[2020-11-20] MEDS: carvediloL 12.5 MG TABLET PO SCH ×2 (09:27→17:29)
[2020-11-20] MEDS: CETIRIZINE 10 MG TABLET PO SCH (09:28)
[2020-11-20] MEDS: INSULIN LISPRO 100 UNIT/ML SUBCUT SCH ×4 (09:28→21:31)
[2020-11-20] MEDS: DEXAMETHASONE 4 MG/1 ML VIAL IV SCH (09:28)
[2020-11-20] MEDS: HEPARIN 5,000 UNIT/1 ML VIAL SUBCUT SCH ×3 (09:38→21:31)
[2020-11-20] MEDS: guaiFENesin/CODEINE 5 ML LIQUID PO PRN (09:38)
[2020-11-20] MEDS: [UNRECOGNIZED DRUG - REMARK] PO SCH (10:53)
[2020-11-20] MEDS ORDERED: MORPHINE 4 MG/1 ML VIAL ONE (15:09)
[2020-11-20] MEDS: MORPHINE 4 MG/1 ML VIAL IV PRN (15:10)
[2020-11-20] MEDS ORDERED: DILTIAZEM INJ 100 MG in SODIUM CHLORIDE 0.9% 100 ML IV SCH (15:30)
[2020-11-20] MEDS ORDERED: MORPHINE 4 MG/1 ML VIAL IV SCH (18:00)
[2020-11-20] MEDS: MELATONIN 3 MG TABLET PO PRN (21:31)
[2020-11-21] MEDS: MORPHINE 4 MG/1 ML VIAL IV PRN (00:50)
[2020-11-21] MEDS: HEPARIN 5,000 UNIT/1 ML VIAL SUBCUT SCH ×4 (04:38→21:14)
[2020-11-21] MEDS: ONDANSETRON 4 MG/2 ML VIAL IV PRN (04:38)
[2020-11-21] MEDS: PIPERACILLIN/TAZOBACTAM 3,375 MG in SODIUM CHLORIDE 0.9% 100 ML IV SCH ×2 (04:38→16:51)
[2020-11-21 05:50] LABS: Basophils % 0.2 % (0.0-0.8); Hematocrit 25.9 VOL% (35.7-47.0); Hemoglobin 8.2 GM/DL (12.0-16.0); Immature Granulocytes % 4.2 %; Immature Granulocytes Absolute 0.22 #; Lymphocytes # 0.4 10*3/uL (1.4-4.0); Lymphocytes % 8.2 % (21.3-54.2); Mean Corpuscular HGB Conc 31.7 GM/DL (32-36); Mean Corpuscular Volume 107.5 FL (87-102); Mean Platelet Volume 11.9 FL (9.6-12.0); Monocytes % 5.5 % (1.7-12.7); NRBC # 0.06 10*3/uL; Neutrophils % 81.9 % (38.7-73.9); Red Blood Count 2.41 MC/CUMM (3.8-5.5); Red Cell Distribution Width 17.4 % (9.3-17.3); White Blood Count 5.3 T/CUMM (4-12)
[2020-11-21 05:54] LABS: Platelet Count 67 T/CUMM (130-400)
[2020-11-21 06:01] LABS: Calcium 7.3 MG/DL (8.5-10.1); Osmolality,Calculated 286.8 MOS/KG (273-304); Potassium 4.3 MMOL/L (3.5-5.1)
[2020-11-21 06:23] LABS: Anisocytosis 1+; Band Neutrophils 1 % (0-10); Hypochromasia 2+; Lymphocytes 4 % (20-55); Metamyelocytes 1 %; Microcytosis 1+; Nucleated Red Blood Cells 1 (0-5); Ovalocytes Few; Segmented Neutrophils 90 % (50-85); Total Cells Counted 100
[2020-11-21 06:24] LABS: Platelet Estimate Decreased
[2020-11-21] MEDS: CHOLECALCIFEROL 1,000 UNIT TABLET PO SCH (08:33)
[2020-11-21] MEDS: ASCORBIC ACID 500 MG TABLET PO SCH ×2 (08:33→21:14)
[2020-11-21] MEDS: CETIRIZINE 10 MG TABLET PO SCH (08:33)
[2020-11-21] MEDS: amLODIPine 10 MG TABLET PO SCH (08:33)
[2020-11-21] MEDS: ZINC GLUCONATE 50 MG TABLET PO SCH (08:33)
[2020-11-21] MEDS: FOLIC ACID 1 MG TABLET PO SCH (08:33)
[2020-11-21] MEDS: FAMOTIDINE 20 MG TABLET PO SCH ×2 (08:33→21:14)
[2020-11-21] MEDS: ASPIRIN EC 81 MG TABLET PO SCH (08:33)
[2020-11-21] MEDS: ANASTROZOLE 1 MG TABLET PO SCH (08:34)
[2020-11-21] MEDS: INSULIN LISPRO 100 UNIT/ML SUBCUT SCH ×4 (08:34→21:24)
[2020-11-21] MEDS: lisinopriL 10 MG TABLET PO SCH (08:34)
[2020-11-21] MEDS: MULTIVITAMIN (BEROCCA) TABLET PO SCH (08:34)
[2020-11-21] MEDS: carvediloL 12.5 MG TABLET PO SCH ×2 (08:34→16:50)
[2020-11-21] MEDS: DEXAMETHASONE 4 MG/1 ML VIAL IV SCH (08:34)
[2020-11-21] MEDS: [UNRECOGNIZED DRUG - REMARK] PO SCH (08:35)
[2020-11-21] MEDS ORDERED: FUROSEMIDE 100 MG/10 ML VIAL IV ONE (10:12)
[2020-11-21 10:15] LABS: ABG Base Excess 2.5 MMOL/L (-2.5-2.5); ABG HCO3 26.6 MMOL/L (20-26); ABG Oxygen Saturation 92.8 % (95-100); ABG PCO2 41.6 MM HG (35-48); ABG PH 7.423 (7.35-7.45); ABG PO2 68.1 MM HG (80-95); ABG TCO2 25.3 MMOL/L (23-27); Allen Test Positive; Pt O2 Delivery Device Other
[2020-11-21] MEDS ORDERED: FUROSEMIDE 40 MG/4 ML VIAL IV ONE (10:30)
[2020-11-21] MEDS: ACETAMINOPHEN 500 MG TABLET PO PRN (13:38)
[2020-11-21] MEDS: methylPREDNISolone SOD SUC 40 MG/1 ML VIAL IV SCH (13:39)
[2020-11-22] MEDS: methylPREDNISolone SOD SUC 40 MG/1 ML VIAL IV SCH ×3 (01:01→18:05)
[2020-11-22] MEDS: HEPARIN 5,000 UNIT/1 ML VIAL SUBCUT SCH ×4 (04:47→21:01)
[2020-11-22 06:25] LABS: Hematocrit 25.3 VOL% (35.7-47.0); Hemoglobin 8.5 GM/DL (12.0-16.0); Immature Granulocytes % 6.4 %; Immature Granulocytes Absolute 0.34 #; Lymphocytes # 0.3 10*3/uL (1.4-4.0); Lymphocytes % 5.8 % (21.3-54.2); Mean Corpuscular HGB Conc 33.6 GM/DL (32-36); Mean Corpuscular Volume 103.3 FL (87-102); Mean Platelet Volume 12.3 FL (9.6-12.0); Monocytes % 4.5 % (1.7-12.7); NRBC # 0.05 10*3/uL; Neutrophils % 83.3 % (38.7-73.9); Platelet Count 83 T/CUMM (130-400); Red Blood Count 2.45 MC/CUMM (3.8-5.5); Red Cell Distribution Width 16.7 % (9.3-17.3); White Blood Count 5.4 T/CUMM (4-12)
[2020-11-22 07:03] LABS: Band Neutrophils 1 % (0-10); Hypochromasia 1+; Lymphocytes 7 % (20-55); Metamyelocytes 1 %; Myelocytes 2 %; Segmented Neutrophils 84 % (50-85); Total Cells Counted 100
[2020-11-22 07:04] LABS: Microcytosis 1+; Ovalocytes Few; Platelet Estimate Decreased
[2020-11-22 07:07] LABS: Osmolality,Calculated 299.8 MOS/KG (273-304); Potassium 5.1 MMOL/L (3.5-5.1)
[2020-11-22] MEDS: [UNRECOGNIZED DRUG - REMARK] PO SCH (08:18)
[2020-11-22] MEDS: INSULIN LISPRO 100 UNIT/ML SUBCUT SCH ×4 (09:18→20:59)
[2020-11-22] MEDS: CHOLECALCIFEROL 1,000 UNIT TABLET PO SCH (09:19)
[2020-11-22] MEDS: ANASTROZOLE 1 MG TABLET PO SCH (09:19)
[2020-11-22] MEDS: ASCORBIC ACID 500 MG TABLET PO SCH ×2 (09:19→21:00)
[2020-11-22] MEDS: ZINC GLUCONATE 50 MG TABLET PO SCH (09:19)
[2020-11-22] MEDS: carvediloL 12.5 MG TABLET PO SCH ×2 (09:19→18:10)
[2020-11-22] MEDS: ASPIRIN EC 81 MG TABLET PO SCH (09:19)
[2020-11-22] MEDS: MULTIVITAMIN (BEROCCA) TABLET PO SCH (09:19)
[2020-11-22] MEDS: FOLIC ACID 1 MG TABLET PO SCH (09:20)
[2020-11-22] MEDS: PIPERACILLIN/TAZOBACTAM 3,375 MG in SODIUM CHLORIDE 0.9% 100 ML IV SCH ×2 (09:20→18:11)
[2020-11-22] MEDS: CETIRIZINE 10 MG TABLET PO SCH (09:20)
[2020-11-22] MEDS: FAMOTIDINE 20 MG TABLET PO SCH ×2 (09:20→21:01)
[2020-11-22] MEDS: lisinopriL 10 MG TABLET PO SCH (17:30)
[2020-11-22] MEDS: amLODIPine 10 MG TABLET PO SCH (17:30)
[2020-11-23] MEDS: methylPREDNISolone SOD SUC 40 MG/1 ML VIAL IV SCH ×3 (01:10→17:17)
[2020-11-23] MEDS: HEPARIN 5,000 UNIT/1 ML VIAL SUBCUT SCH ×4 (03:37→21:11)
[2020-11-23] MEDS: PIPERACILLIN/TAZOBACTAM 3,375 MG in SODIUM CHLORIDE 0.9% 100 ML IV SCH ×2 (04:28→17:17)
[2020-11-23 05:42] LABS: Basophils % 0.1 % (0.0-0.8); Hematocrit 27.6 VOL% (35.7-47.0); Hemoglobin 8.4 GM/DL (12.0-16.0); Immature Granulocytes % 5.8 %; Immature Granulocytes Absolute 0.41 #; Lymphocytes # 0.3 10*3/uL (1.4-4.0); Lymphocytes % 4.4 % (21.3-54.2); Mean Corpuscular HGB Conc 30.4 GM/DL (32-36); Mean Corpuscular Volume 106.6 FL (87-102); Mean Platelet Volume 11.2 FL (9.6-12.0); Monocytes % 4.2 % (1.7-12.7); NRBC # 0.06 10*3/uL; Neutrophils % 85.5 % (38.7-73.9); Platelet Count 104 T/CUMM (130-400); Red Blood Count 2.59 MC/CUMM (3.8-5.5); Red Cell Distribution Width 16.5 % (9.3-17.3); White Blood Count 7.1 T/CUMM (4-12)
[2020-11-23 06:09] LABS: Band Neutrophils 2 % (0-10); Hypochromasia 1+; Lymphocytes 5 % (20-55); Microcytosis 1+; Nucleated Red Blood Cells 1 (0-5); Platelet Estimate Decreased; Segmented Neutrophils 90 % (50-85); Total Cells Counted 100
[2020-11-23 06:13] LABS: Calcium 7.9 MG/DL (8.5-10.1); Ferritin 4301.9 ng/ml (8-252); Osmolality,Calculated 292.1 MOS/KG (273-304); Potassium 4.8 MMOL/L (3.5-5.1)
[2020-11-23] MEDS: FAMOTIDINE 20 MG TABLET PO SCH ×2 (08:54→20:17)
[2020-11-23] MEDS: lisinopriL 10 MG TABLET PO SCH (08:54)
[2020-11-23] MEDS: amLODIPine 10 MG TABLET PO SCH (08:54)
[2020-11-23] MEDS: carvediloL 12.5 MG TABLET PO SCH ×2 (08:54→17:16)
[2020-11-23] MEDS: CETIRIZINE 10 MG TABLET PO SCH (08:54)
[2020-11-23] MEDS: ASPIRIN EC 81 MG TABLET PO SCH (08:54)
[2020-11-23] MEDS: ASCORBIC ACID 500 MG TABLET PO SCH ×2 (08:54→20:17)
[2020-11-23] MEDS: ZINC GLUCONATE 50 MG TABLET PO SCH (08:55)
[2020-11-23] MEDS: MULTIVITAMIN (BEROCCA) TABLET PO SCH (08:55)
[2020-11-23] MEDS: [UNRECOGNIZED DRUG - REMARK] PO SCH (08:55)
[2020-11-23] MEDS: INSULIN LISPRO 100 UNIT/ML SUBCUT SCH ×4 (08:55→20:16)
[2020-11-23] MEDS: ANASTROZOLE 1 MG TABLET PO SCH (08:55)
[2020-11-23] MEDS: FOLIC ACID 1 MG TABLET PO SCH (08:55)
[2020-11-23] MEDS: CHOLECALCIFEROL 1,000 UNIT TABLET PO SCH (08:55)
[2020-11-23] MEDS: MORPHINE 4 MG/1 ML VIAL IV PRN ×3 (12:01→22:15)
[2020-11-23] MEDS: ACETAMINOPHEN 500 MG TABLET PO PRN (17:15)
[2020-11-23] MEDS: ONDANSETRON 4 MG/2 ML VIAL IV PRN (17:17)
[2020-11-24] MEDS: methylPREDNISolone SOD SUC 40 MG/1 ML VIAL IV SCH ×3 (01:26→21:00)
[2020-11-24] MEDS ORDERED: HYDROmorphone 2 MG/1 ML VIAL IV ONE (01:52)
[2020-11-24] MEDS: HEPARIN 5,000 UNIT/1 ML VIAL SUBCUT SCH ×4 (04:25→21:00)
[2020-11-24] MEDS: PIPERACILLIN/TAZOBACTAM 3,375 MG in SODIUM CHLORIDE 0.9% 100 ML IV SCH (04:26)
[2020-11-24 06:26] LABS: Calcium 7.5 MG/DL (8.5-10.1); Osmolality,Calculated 300.1 MOS/KG (273-304)
[2020-11-24] MEDS: ASPIRIN EC 81 MG TABLET PO SCH (08:43)
[2020-11-24] MEDS: ASCORBIC ACID 500 MG TABLET PO SCH ×2 (08:43→21:00)
[2020-11-24] MEDS: CETIRIZINE 10 MG TABLET PO SCH (08:43)
[2020-11-24] MEDS: FOLIC ACID 1 MG TABLET PO SCH (08:43)
[2020-11-24] MEDS: amLODIPine 10 MG TABLET PO SCH (08:43)
[2020-11-24] MEDS: MULTIVITAMIN (BEROCCA) TABLET PO SCH (08:43)
[2020-11-24] MEDS: lisinopriL 10 MG TABLET PO SCH (08:43)
[2020-11-24] MEDS: CHOLECALCIFEROL 1,000 UNIT TABLET PO SCH (08:43)
[2020-11-24] MEDS: ANASTROZOLE 1 MG TABLET PO SCH (08:43)
[2020-11-24] MEDS: carvediloL 12.5 MG TABLET PO SCH ×2 (08:43→18:20)
[2020-11-24] MEDS: ZINC GLUCONATE 50 MG TABLET PO SCH (08:43)
[2020-11-24] MEDS: FAMOTIDINE 20 MG TABLET PO SCH ×2 (08:43→21:00)
[2020-11-24] MEDS: INSULIN LISPRO 100 UNIT/ML SUBCUT SCH ×4 (08:44→20:02)
[2020-11-24] MEDS: MORPHINE 4 MG/1 ML VIAL IV PRN (08:46)
[2020-11-24] MEDS: [UNRECOGNIZED DRUG - REMARK] PO SCH (08:48)
[2020-11-24] MEDS: SEVELAMER CARBONATE 800 MG TABLET PO SCH ×2 (12:05→18:20)
[2020-11-24] MEDS: hydrALAZINE 20 MG/1 ML VIAL IV PRN (21:00)
[2020-11-24] MEDS: MELATONIN 3 MG TABLET PO PRN (21:00)
[2020-11-25] MEDS: HEPARIN 5,000 UNIT/1 ML VIAL SUBCUT SCH ×4 (03:12→21:00)
[2020-11-25] MEDS: MORPHINE 4 MG/1 ML VIAL IV PRN ×2 (03:13→09:21)
[2020-11-25 04:13] LABS: Basophils % 0.2 % (0.0-0.8); Hematocrit 26.7 VOL% (35.7-47.0); Immature Granulocytes % 3.6 %; Immature Granulocytes Absolute 0.44 #; Lymphocytes # 0.3 10*3/uL (1.4-4.0); Lymphocytes % 2.1 % (21.3-54.2); Mean Corpuscular HGB Conc 33.7 GM/DL (32-36); Mean Corpuscular Volume 98.9 FL (87-102); Mean Platelet Volume 11.2 FL (9.6-12.0); Monocytes % 3.7 % (1.7-12.7); NRBC # 0.11 10*3/uL; Neutrophils % 90.4 % (38.7-73.9); Platelet Count 101 T/CUMM (130-400); Red Cell Distribution Width 16.7 % (9.3-17.3); White Blood Count 12.1 T/CUMM (4-12)
[2020-11-25 04:36] LABS: Calcium 7.6 MG/DL (8.5-10.1); Osmolality,Calculated 283.5 MOS/KG (273-304); Potassium 4.7 MMOL/L (3.5-5.1)
[2020-11-25 04:54] LABS: Band Neutrophils 1 % (0-10); Lymphocytes 4 % (20-55); Segmented Neutrophils 92 % (50-85); Total Cells Counted 100
[2020-11-25 04:56] LABS: Hypochromasia 1+
[2020-11-25 04:57] LABS: Microcytosis 2+; Ovalocytes 2+; Platelet Estimate Decreased; Polychromasia Few; Tear Drop Cells Few
[2020-11-25] MEDS: INSULIN LISPRO 100 UNIT/ML SUBCUT SCH ×4 (07:46→20:57)
[2020-11-25] MEDS: methylPREDNISolone SOD SUC 40 MG/1 ML VIAL IV SCH ×2 (08:30→21:00)
[2020-11-25] MEDS: ZINC GLUCONATE 50 MG TABLET PO SCH (08:31)
[2020-11-25] MEDS: ASCORBIC ACID 500 MG TABLET PO SCH ×2 (08:31→21:00)
[2020-11-25] MEDS: SEVELAMER CARBONATE 800 MG TABLET PO SCH ×3 (08:32→17:26)
[2020-11-25] MEDS: CHOLECALCIFEROL 1,000 UNIT TABLET PO SCH (08:32)
[2020-11-25] MEDS: ASPIRIN EC 81 MG TABLET PO SCH (08:32)
[2020-11-25] MEDS: MULTIVITAMIN (BEROCCA) TABLET PO SCH (08:33)
[2020-11-25] MEDS: FOLIC ACID 1 MG TABLET PO SCH (08:33)
[2020-11-25] MEDS: CETIRIZINE 10 MG TABLET PO SCH (08:33)
[2020-11-25] MEDS: lisinopriL 10 MG TABLET PO SCH (08:33)
[2020-11-25] MEDS: FAMOTIDINE 20 MG TABLET PO SCH ×2 (08:33→21:00)
[2020-11-25] MEDS: amLODIPine 10 MG TABLET PO SCH (08:34)
[2020-11-25] MEDS: ANASTROZOLE 1 MG TABLET PO SCH (08:34)
[2020-11-25] MEDS: carvediloL 12.5 MG TABLET PO SCH ×2 (08:34→17:26)
[2020-11-25] MEDS: [UNRECOGNIZED DRUG - REMARK] PO SCH (08:50)
[2020-11-25] MEDS: MELATONIN 3 MG TABLET PO PRN (21:00)
[2020-11-26] MEDS: HEPARIN 5,000 UNIT/1 ML VIAL SUBCUT SCH ×4 (04:22→21:00)
[2020-11-26 07:17] LABS: Basophils % 0.2 % (0.0-0.8); Hematocrit 25.2 VOL% (35.7-47.0); Hemoglobin 8.7 GM/DL (12.0-16.0); Immature Granulocytes % 4.6 %; Immature Granulocytes Absolute 0.54 #; Lymphocytes # 0.3 10*3/uL (1.4-4.0); Lymphocytes % 2.1 % (21.3-54.2); Mean Corpuscular HGB Conc 34.5 GM/DL (32-36); Mean Corpuscular Volume 99.6 FL (87-102); Mean Platelet Volume 10.9 FL (9.6-12.0); Monocytes % 2.8 % (1.7-12.7); NRBC # 0.09 10*3/uL; Neutrophils % 90.3 % (38.7-73.9); Platelet Count 98 T/CUMM (130-400); Red Blood Count 2.53 MC/CUMM (3.8-5.5); Red Cell Distribution Width 17.1 % (9.3-17.3); White Blood Count 11.8 T/CUMM (4-12)
[2020-11-26 07:46] LABS: Calcium 7.3 MG/DL (8.5-10.1); Ferritin 4106.1 ng/ml (8-252); Osmolality,Calculated 296.1 MOS/KG (273-304); Potassium 5.4 MMOL/L (3.5-5.1)
[2020-11-26 08:08] LABS: Anisocytosis 2+; Band Neutrophils 6 % (0-10); Lymphocytes 4 % (20-55); Macrocytosis 1+; Nucleated Red Blood Cells 2 (0-5); Ovalocytes Few; Platelet Estimate Decreased; Segmented Neutrophils 87 % (50-85); Tear Drop Cells Few; Total Cells Counted 100
[2020-11-26] MEDS: ONDANSETRON 4 MG/2 ML VIAL IV PRN (08:34)
[2020-11-26] MEDS: INSULIN LISPRO 100 UNIT/ML SUBCUT SCH ×4 (08:49→22:05)
[2020-11-26] MEDS: [UNRECOGNIZED DRUG - REMARK] PO SCH (09:26)
[2020-11-26] MEDS: SEVELAMER CARBONATE 800 MG TABLET PO SCH ×3 (09:49→16:30)
[2020-11-26] MEDS: amLODIPine 10 MG TABLET PO SCH (09:50)
[2020-11-26] MEDS: ANASTROZOLE 1 MG TABLET PO SCH (09:50)
[2020-11-26] MEDS: ZINC GLUCONATE 50 MG TABLET PO SCH (09:50)
[2020-11-26] MEDS: FOLIC ACID 1 MG TABLET PO SCH (09:50)
[2020-11-26] MEDS: CHOLECALCIFEROL 1,000 UNIT TABLET PO SCH (09:50)
[2020-11-26] MEDS: MULTIVITAMIN (BEROCCA) TABLET PO SCH (09:50)
[2020-11-26] MEDS: lisinopriL 10 MG TABLET PO SCH (09:50)
[2020-11-26] MEDS: ASPIRIN EC 81 MG TABLET PO SCH (09:50)
[2020-11-26] MEDS: FAMOTIDINE 20 MG TABLET PO SCH ×2 (09:50→21:00)
[2020-11-26] MEDS: ASCORBIC ACID 500 MG TABLET PO SCH ×2 (09:51→21:00)
[2020-11-26] MEDS: carvediloL 12.5 MG TABLET PO SCH ×2 (09:51→16:30)
[2020-11-26] MEDS: methylPREDNISolone SOD SUC 40 MG/1 ML VIAL IV SCH ×2 (09:51→21:00)
[2020-11-26] MEDS: CETIRIZINE 10 MG TABLET PO SCH (09:51)
[2020-11-26] MEDS ORDERED: SODIUM POLYSTYRENE SULFATE 15 GM/60 ML BOTTLE PO STA (11:55)
[2020-11-26] MEDS ORDERED: LACTULOSE 20 GM/30 ML UDCUP PO PRN (17:00)
[2020-11-26] MEDS: MELATONIN 3 MG TABLET PO PRN (21:00)
[2020-11-27] MEDS: ONDANSETRON 4 MG/2 ML VIAL IV PRN (02:00)
[2020-11-27] MEDS: HEPARIN 5,000 UNIT/1 ML VIAL SUBCUT SCH ×4 (04:13→21:23)
[2020-11-27 06:41] LABS: Basophils % 0.1 % (0.0-0.8); Hematocrit 24.2 VOL% (35.7-47.0); Hemoglobin 8.3 GM/DL (12.0-16.0); Immature Granulocytes % 2.7 %; Lymphocytes # 0.3 10*3/uL (1.4-4.0); Lymphocytes % 2.1 % (21.3-54.2); Mean Corpuscular HGB Conc 34.3 GM/DL (32-36); Mean Corpuscular Volume 100.8 FL (87-102); Mean Platelet Volume 11.4 FL (9.6-12.0); Monocytes % 3.5 % (1.7-12.7); NRBC # 0.03 10*3/uL; Neutrophils % 91.6 % (38.7-73.9); Platelet Count 101 T/CUMM (130-400); Red Cell Distribution Width 17.3 % (9.3-17.3); White Blood Count 15.1 T/CUMM (4-12)
[2020-11-27 07:18] LABS: Hypochromasia 1+; Lymphocytes 1 % (20-55); Microcytosis 1+; Ovalocytes Slight; Platelet Estimate Decreased; Segmented Neutrophils 96 % (50-85); Total Cells Counted 100
[2020-11-27 07:54] LABS: Calcium 7.2 MG/DL (8.5-10.1); Osmolality,Calculated 310.2 MOS/KG (273-304)
[2020-11-27 07:59] LABS: Potassium 6.1 MMOL/L (3.5-5.1)
[2020-11-27] MEDS: SEVELAMER CARBONATE 800 MG TABLET PO SCH ×3 (08:19→16:45)
[2020-11-27] MEDS: INSULIN LISPRO 100 UNIT/ML SUBCUT SCH ×4 (08:19→21:37)
[2020-11-27] MEDS: methylPREDNISolone SOD SUC 40 MG/1 ML VIAL IV SCH ×2 (08:19→21:23)
[2020-11-27] MEDS: FOLIC ACID 1 MG TABLET PO SCH (08:19)
[2020-11-27] MEDS: FAMOTIDINE 20 MG TABLET PO SCH ×2 (08:19→20:14)
[2020-11-27] MEDS: ASPIRIN EC 81 MG TABLET PO SCH (08:20)
[2020-11-27] MEDS: ASCORBIC ACID 500 MG TABLET PO SCH ×2 (08:20→20:14)
[2020-11-27] MEDS: MULTIVITAMIN (BEROCCA) TABLET PO SCH (08:20)
[2020-11-27] MEDS: lisinopriL 10 MG TABLET PO SCH (08:20)
[2020-11-27] MEDS: ANASTROZOLE 1 MG TABLET PO SCH (08:20)
[2020-11-27] MEDS: ZINC GLUCONATE 50 MG TABLET PO SCH (08:20)
[2020-11-27] MEDS: amLODIPine 10 MG TABLET PO SCH (08:20)
[2020-11-27] MEDS: carvediloL 12.5 MG TABLET PO SCH ×3 (08:20→16:45)
[2020-11-27] MEDS: CHOLECALCIFEROL 1,000 UNIT TABLET PO SCH (08:20)
[2020-11-27] MEDS: [UNRECOGNIZED DRUG - REMARK] PO SCH (08:38)
[2020-11-27] MEDS: CETIRIZINE 10 MG TABLET PO SCH (08:38)
[2020-11-27] MEDS: MELATONIN 3 MG TABLET PO PRN (20:15)
[2020-11-28] MEDS: HEPARIN 5,000 UNIT/1 ML VIAL SUBCUT SCH ×4 (06:05→21:35)
[2020-11-28 06:10] LABS: Basophils % 0.1 % (0.0-0.8); Hematocrit 26.5 VOL% (35.7-47.0); Hemoglobin 8.6 GM/DL (12.0-16.0); Immature Granulocytes % 2.1 %; Immature Granulocytes Absolute 0.32 #; Lymphocytes # 0.3 10*3/uL (1.4-4.0); Lymphocytes % 1.9 % (21.3-54.2); Mean Corpuscular HGB Conc 32.5 GM/DL (32-36); Mean Corpuscular Volume 103.9 FL (87-102); Mean Platelet Volume 10.8 FL (9.6-12.0); Monocytes % 2.6 % (1.7-12.7); NRBC # 0.02 10*3/uL; Neutrophils % 93.3 % (38.7-73.9); Platelet Count 104 T/CUMM (130-400); Red Blood Count 2.55 MC/CUMM (3.8-5.5); Red Cell Distribution Width 17.4 % (9.3-17.3); White Blood Count 15.6 T/CUMM (4-12)
[2020-11-28 06:31] LABS: Hypochromasia 1+; Lymphocytes 3 % (20-55); Microcytosis 1+; Nucleated Red Blood Cells 2 (0-5); Ovalocytes Slight; Platelet Estimate Decreased; Segmented Neutrophils 96 % (50-85); Total Cells Counted 100
[2020-11-28 06:45] LABS: Calcium 7.6 MG/DL (8.5-10.1); Potassium 5.2 MMOL/L (3.5-5.1)
[2020-11-28] MEDS: methylPREDNISolone SOD SUC 40 MG/1 ML VIAL IV SCH (09:10)
[2020-11-28] MEDS: INSULIN LISPRO 100 UNIT/ML SUBCUT SCH ×4 (09:10→23:08)
[2020-11-28] MEDS: ASPIRIN EC 81 MG TABLET PO SCH (09:11)
[2020-11-28] MEDS: ZINC GLUCONATE 50 MG TABLET PO SCH (09:11)
[2020-11-28] MEDS: FOLIC ACID 1 MG TABLET PO SCH (09:11)
[2020-11-28] MEDS: CETIRIZINE 10 MG TABLET PO SCH (09:11)
[2020-11-28] MEDS: amLODIPine 10 MG TABLET PO SCH (09:11)
[2020-11-28] MEDS: ANASTROZOLE 1 MG TABLET PO SCH (09:11)
[2020-11-28] MEDS: ASCORBIC ACID 500 MG TABLET PO SCH ×2 (09:11→21:35)
[2020-11-28] MEDS: CHOLECALCIFEROL 1,000 UNIT TABLET PO SCH (09:12)
[2020-11-28] MEDS: FAMOTIDINE 20 MG TABLET PO SCH ×2 (09:12→21:35)
[2020-11-28] MEDS: SEVELAMER CARBONATE 800 MG TABLET PO SCH ×3 (09:12→16:29)
[2020-11-28] MEDS: carvediloL 12.5 MG TABLET PO SCH ×2 (09:12→16:29)
[2020-11-28] MEDS: MULTIVITAMIN (BEROCCA) TABLET PO SCH (09:12)
[2020-11-28] MEDS: [UNRECOGNIZED DRUG - REMARK] PO SCH (09:13)
[2020-11-28] MEDS: predniSONE 20 MG TABLET PO SCH ×2 (14:04→14:07)
[2020-11-28] MEDS: MELATONIN 3 MG TABLET PO PRN (21:34)
[2020-11-29] MEDS: HEPARIN 5,000 UNIT/1 ML VIAL SUBCUT SCH ×4 (04:10→22:45)
[2020-11-29 06:36] LABS: Basophils % 0.1 % (0.0-0.8); Eosinophils # 0.1 10*3/uL (0.0-0.87); Eosinophils % 0.6 % (0.00-10.9); Hematocrit 26.9 VOL% (35.7-47.0); Hemoglobin 9.2 GM/DL (12.0-16.0); Immature Granulocytes Absolute 0.29 #; Lymphocytes # 0.8 10*3/uL (1.4-4.0); Lymphocytes % 5.3 % (21.3-54.2); Mean Corpuscular HGB Conc 34.2 GM/DL (32-36); Mean Corpuscular Volume 101.5 FL (87-102); Mean Platelet Volume 11.1 FL (9.6-12.0); Monocytes % 4.4 % (1.7-12.7); Neutrophils % 87.6 % (38.7-73.9); Platelet Count 103 T/CUMM (130-400); Red Blood Count 2.65 MC/CUMM (3.8-5.5); Red Cell Distribution Width 17.2 % (9.3-17.3); White Blood Count 14.4 T/CUMM (4-12)
[2020-11-29 07:08] LABS: Albumin 2.3 G/DL (3.4-5.0); Bilirubin,Total 0.4 MG/DL (0.2-1.0); Calcium 7.5 MG/DL (8.5-10.1); Osmolality,Calculated 302.8 MOS/KG (273-304); Potassium 4.7 MMOL/L (3.5-5.1); Total Protein 6.9 G/DL (6.4-8.3)
[2020-11-29] MEDS: INSULIN LISPRO 100 UNIT/ML SUBCUT SCH ×4 (08:00→21:09)
[2020-11-29] MEDS: SEVELAMER CARBONATE 800 MG TABLET PO SCH ×3 (09:08→17:49)
[2020-11-29] MEDS: ASCORBIC ACID 500 MG TABLET PO SCH ×2 (10:37→21:09)
[2020-11-29] MEDS: MULTIVITAMIN (BEROCCA) TABLET PO SCH (10:37)
[2020-11-29] MEDS: ZINC GLUCONATE 50 MG TABLET PO SCH (10:37)
[2020-11-29] MEDS: carvediloL 12.5 MG TABLET PO SCH ×2 (10:37→17:49)
[2020-11-29] MEDS: CHOLECALCIFEROL 1,000 UNIT TABLET PO SCH (10:37)
[2020-11-29] MEDS: predniSONE 20 MG TABLET PO SCH (10:37)
[2020-11-29] MEDS: ASPIRIN EC 81 MG TABLET PO SCH (10:37)
[2020-11-29] MEDS: ANASTROZOLE 1 MG TABLET PO SCH (10:38)
[2020-11-29] MEDS: FAMOTIDINE 20 MG TABLET PO SCH ×2 (10:38→21:09)
[2020-11-29] MEDS: CETIRIZINE 10 MG TABLET PO SCH (10:38)
[2020-11-29] MEDS: FOLIC ACID 1 MG TABLET PO SCH (10:38)
[2020-11-29] MEDS: [UNRECOGNIZED DRUG - REMARK] PO SCH (12:31)
[2020-11-29] MEDS ORDERED: SODIUM CHLORIDE 0.9% 500 ML IV ONE (12:32)
[2020-11-29] MEDS: amLODIPine 10 MG TABLET PO SCH (12:32)
[2020-11-29] MEDS ORDERED: DIGOXIN 0.5 MG/2 ML AMP IV ONE (12:43)
[2020-11-29] MEDS: DIGOXIN 0.5 MG/2 ML AMP IV SCH (13:52)
[2020-11-29] MEDS: hydrALAZINE 20 MG/1 ML VIAL IV PRN (21:09)
[2020-11-29 23:09] LABS: ABG Base Excess 0.4 MMOL/L (-2.5-2.5); ABG HCO3 24.8 MMOL/L (20-26); ABG Oxygen Saturation 97.9 % (95-100); ABG PCO2 36.3 MM HG (35-48); ABG PH 7.436 (7.35-7.45); ABG TCO2 22.1 MMOL/L (23-27)
[2020-11-29] MEDS ORDERED: ZIPRASIDONE 20 MG/1 ML VIAL IM ONE (23:13)
[2020-11-30] MEDS: hydrALAZINE 20 MG/1 ML VIAL IV PRN (04:20)
[2020-11-30 04:52] LABS: Calcium 7.5 MG/DL (8.5-10.1); Osmolality,Calculated 300.3 MOS/KG (273-304); Potassium 4.3 MMOL/L (3.5-5.1)
[2020-11-30 04:53] LABS: Basophils % 0.1 % (0.0-0.8); Eosinophils % 0.1 % (0.00-10.9); Hematocrit 26.1 VOL% (35.7-47.0); Hemoglobin 8.5 GM/DL (12.0-16.0); Immature Granulocytes % 2.6 %; Immature Granulocytes Absolute 0.36 #; Lymphocytes # 0.4 10*3/uL (1.4-4.0); Lymphocytes % 2.8 % (21.3-54.2); Mean Corpuscular HGB Conc 32.6 GM/DL (32-36); Mean Corpuscular Volume 103.6 FL (87-102); Monocytes % 3.8 % (1.7-12.7); Neutrophils % 90.6 % (38.7-73.9); Red Blood Count 2.52 MC/CUMM (3.8-5.5); Red Cell Distribution Width 17.2 % (9.3-17.3); White Blood Count 14.1 T/CUMM (4-12)
[2020-11-30 04:54] LABS: Platelet Count 97 T/CUMM (130-400)
[2020-11-30] MEDS ORDERED: LORazepam 2 MG/1 ML VIAL IV ONE (05:03)
[2020-11-30] MEDS ORDERED: LORazepam 2 MG/1 ML VIAL ONE ×2 (05:05→13:54)
[2020-11-30] MEDS: HEPARIN 5,000 UNIT/1 ML VIAL SUBCUT SCH ×4 (05:15→21:00)
[2020-11-30 05:39] LABS: Band Neutrophils 1 % (0-10); Hypochromasia 1+; Lymphocytes 1 % (20-55); Metamyelocytes 1 %; Ovalocytes Few; Segmented Neutrophils 94 % (50-85); Total Cells Counted 100
[2020-11-30 05:40] LABS: Microcytosis 1+; Platelet Estimate Decreased
[2020-11-30] MEDS: ASCORBIC ACID 500 MG TABLET PO SCH ×3 (06:13→20:46)
[2020-11-30] MEDS: FAMOTIDINE 20 MG TABLET PO SCH ×3 (06:13→20:46)
[2020-11-30] MEDS ORDERED: LORazepam 1 MG TABLET PO PRN (09:54)
[2020-11-30] MEDS: INSULIN LISPRO 100 UNIT/ML SUBCUT SCH ×4 (10:05→20:45)
[2020-11-30] MEDS: SEVELAMER CARBONATE 800 MG TABLET PO SCH ×2 (10:05→11:34)
[2020-11-30] MEDS: DIGOXIN 0.5 MG/2 ML AMP IV SCH (10:06)
[2020-11-30] MEDS: carvediloL 12.5 MG TABLET PO SCH ×2 (12:13→17:23)
[2020-11-30] MEDS: amLODIPine 10 MG TABLET PO SCH (12:14)
[2020-11-30] MEDS: ASPIRIN EC 81 MG TABLET PO SCH (12:14)
[2020-11-30] MEDS ORDERED: predniSONE 20 MG TABLET PO SCH (13:12)
[2020-11-30] MEDS: CETIRIZINE 10 MG TABLET PO SCH (13:51)
[2020-11-30] MEDS: ZINC GLUCONATE 50 MG TABLET PO SCH (13:51)
[2020-11-30] MEDS: CHOLECALCIFEROL 1,000 UNIT TABLET PO SCH (13:51)
[2020-11-30] MEDS: FOLIC ACID 1 MG TABLET PO SCH (13:51)
[2020-11-30] MEDS: MULTIVITAMIN (BEROCCA) TABLET PO SCH (13:51)
[2020-11-30] MEDS: ANASTROZOLE 1 MG TABLET PO SCH (13:51)
[2020-11-30] MEDS: LORazepam 2 MG/1 ML VIAL IV PRN (13:54)
[2020-11-30] MEDS: [UNRECOGNIZED DRUG - REMARK] PO SCH (14:28)
[2020-11-30] MEDS: predniSONE 20 MG TABLET PO SCH (14:30)
[2020-12-01] MEDS: LORazepam 2 MG/1 ML VIAL IV PRN ×2 (00:57→10:00)
[2020-12-01 04:26] LABS: Eosinophils % 0.1 % (0.00-10.9); Hematocrit 22.6 VOL% (35.7-47.0); Hemoglobin 7.2 GM/DL (12.0-16.0); Immature Granulocytes % 1.7 %; Immature Granulocytes Absolute 0.19 #; Lymphocytes # 0.3 10*3/uL (1.4-4.0); Mean Corpuscular HGB Conc 31.9 GM/DL (32-36); Mean Corpuscular Volume 106.6 FL (87-102); Mean Platelet Volume 11.3 FL (9.6-12.0); NRBC # 0.02 10*3/uL; Neutrophils % 91.2 % (38.7-73.9); Red Blood Count 2.12 MC/CUMM (3.8-5.5); Red Cell Distribution Width 18.1 % (9.3-17.3); White Blood Count 10.9 T/CUMM (4-12)
[2020-12-01 04:27] LABS: Allen Test Positive; Pt O2 Delivery Device Other
[2020-12-01 04:28] LABS: Platelet Count 74 T/CUMM (130-400)
[2020-12-01 04:31] LABS: ABG HCO3 23.4 MMOL/L (20-26); ABG Oxygen Saturation 84.3 % (95-100); ABG PCO2 38.4 MM HG (35-48); ABG PH 7.397 (7.35-7.45); ABG PO2 54.3 MM HG (80-95); ABG TCO2 22.1 MMOL/L (23-27)
[2020-12-01 04:42] LABS: Calcium 6.7 MG/DL (8.5-10.1); Osmolality,Calculated 302.4 MOS/KG (273-304); Potassium 4.9 MMOL/L (3.5-5.1)
[2020-12-01 04:52] LABS: Band Neutrophils 2 % (0-10); Lymphocytes 1 % (20-55); Segmented Neutrophils 95 % (50-85); Total Cells Counted 100
[2020-12-01 04:57] LABS: Hypochromasia 1+; Microcytosis 1+; Ovalocytes Few
[2020-12-01 04:58] LABS: Platelet Estimate Decreased
[2020-12-01] MEDS: HEPARIN 5,000 UNIT/1 ML VIAL SUBCUT SCH ×4 (04:58→22:22)
[2020-12-01] MEDS: INSULIN LISPRO 100 UNIT/ML SUBCUT SCH ×3 (07:44→16:32)
[2020-12-01] MEDS: carvediloL 12.5 MG TABLET PO SCH ×3 (08:16→18:22)
[2020-12-01] MEDS: amLODIPine 10 MG TABLET PO SCH (08:16)
[2020-12-01] MEDS: ZINC GLUCONATE 50 MG TABLET PO SCH (08:16)
[2020-12-01] MEDS: CETIRIZINE 10 MG TABLET PO SCH (08:16)
[2020-12-01] MEDS: FAMOTIDINE 20 MG TABLET PO SCH ×2 (08:17→20:04)
[2020-12-01] MEDS: MULTIVITAMIN (BEROCCA) TABLET PO SCH (08:17)
[2020-12-01] MEDS: CHOLECALCIFEROL 1,000 UNIT TABLET PO SCH (08:17)
[2020-12-01] MEDS: ASPIRIN CHEW 81 MG TABLET PO SCH (08:17)
[2020-12-01] MEDS: ASCORBIC ACID 500 MG TABLET PO SCH ×2 (08:17→20:04)
[2020-12-01] MEDS: FOLIC ACID 1 MG TABLET PO SCH (08:17)
[2020-12-01] MEDS: ANASTROZOLE 1 MG TABLET PO SCH (08:18)
[2020-12-01] MEDS: DIGOXIN 0.5 MG/2 ML AMP IV SCH (08:18)
[2020-12-01] MEDS: [UNRECOGNIZED DRUG - REMARK] PO SCH (08:19)
[2020-12-01] MEDS ORDERED: LORazepam 2 MG/1 ML VIAL ONE (09:49)
[2020-12-01] MEDS: DEXMEDETOMIDINE 200 MCG in SODIUM CHLORIDE 0.9% 48 ML IV PRN (14:20)
[2020-12-02] MEDS: INSULIN LISPRO 100 UNIT/ML SUBCUT SCH ×4 (00:12→17:14)
[2020-12-02 04:09] LABS: ABG Base Excess 2.3 MMOL/L (-2.5-2.5); ABG HCO3 27.3 MMOL/L (20-26); ABG Oxygen Saturation 91.8 % (95-100); ABG PCO2 44.2 MM HG (35-48); ABG PH 7.408 (7.35-7.45); ABG PO2 69.2 MM HG (80-95); ABG TCO2 28.6 MMOL/L (23-27)
[2020-12-02 04:54] LABS: Basophils % 0.1 % (0.0-0.8); Eosinophils # 0.1 10*3/uL (0.0-0.87); Eosinophils % 0.9 % (0.00-10.9); Hematocrit 24.5 VOL% (35.7-47.0); Hemoglobin 7.8 GM/DL (12.0-16.0); Immature Granulocytes % 2.2 %; Immature Granulocytes Absolute 0.28 #; Lymphocytes # 0.5 10*3/uL (1.4-4.0); Lymphocytes % 3.8 % (21.3-54.2); Mean Corpuscular HGB Conc 31.8 GM/DL (32-36); Mean Corpuscular Volume 106.1 FL (87-102); Mean Platelet Volume 11.6 FL (9.6-12.0); Monocytes % 4.3 % (1.7-12.7); NRBC # 0.02 10*3/uL; Neutrophils % 88.7 % (38.7-73.9); Red Blood Count 2.31 MC/CUMM (3.8-5.5); Red Cell Distribution Width 17.5 % (9.3-17.3)
[2020-12-02 04:57] LABS: Platelet Count 77 T/CUMM (130-400)
[2020-12-02 05:10] LABS: Calcium 7.3 MG/DL (8.5-10.1); Osmolality,Calculated 290.5 MOS/KG (273-304); Potassium 4.4 MMOL/L (3.5-5.1)
[2020-12-02 05:12] LABS: Band Neutrophils 2 % (0-10); Eosinophils 2 % (0-10); Lymphocytes 1 % (20-55); Segmented Neutrophils 92 % (50-85); Total Cells Counted 100
[2020-12-02 05:13] LABS: Hypochromasia 2+; Microcytosis 1+; Ovalocytes Slight; Platelet Estimate Decreased
[2020-12-02] MEDS: HEPARIN 5,000 UNIT/1 ML VIAL SUBCUT SCH ×4 (05:15→21:06)
[2020-12-02 05:17] LABS: Calcium 7.1 MG/DL (8.5-10.1); Potassium 4.7 MMOL/L (3.5-5.1)
[2020-12-02] MEDS: DEXMEDETOMIDINE 200 MCG in SODIUM CHLORIDE 0.9% 48 ML IV PRN ×3 (05:45→16:11)
[2020-12-02] MEDS: carvediloL 12.5 MG TABLET PO SCH ×2 (07:51→17:06)
[2020-12-02] MEDS: ZINC GLUCONATE 50 MG TABLET PO SCH (08:00)
[2020-12-02] MEDS: ASCORBIC ACID 500 MG TABLET PO SCH ×2 (08:01→20:49)
[2020-12-02] MEDS: FOLIC ACID 1 MG TABLET PO SCH (08:01)
[2020-12-02] MEDS: CHOLECALCIFEROL 1,000 UNIT TABLET PO SCH (08:01)
[2020-12-02] MEDS: ANASTROZOLE 1 MG TABLET PO SCH (08:01)
[2020-12-02] MEDS: MULTIVITAMIN (BEROCCA) TABLET PO SCH (08:01)
[2020-12-02] MEDS: ASPIRIN CHEW 81 MG TABLET PO SCH (08:01)
[2020-12-02] MEDS: FAMOTIDINE 20 MG TABLET PO SCH ×2 (08:02→20:49)
[2020-12-02] MEDS: amLODIPine 10 MG TABLET PO SCH (08:02)
[2020-12-02] MEDS: CETIRIZINE 10 MG TABLET PO SCH (08:02)
[2020-12-02] MEDS: DIGOXIN 0.5 MG/2 ML AMP IV SCH (08:04)
[2020-12-02] MEDS: lisinopriL 10 MG TABLET PO SCH (08:06)
[2020-12-02] MEDS: LORazepam 2 MG/1 ML VIAL IV PRN ×2 (08:20→17:51)
[2020-12-02] MEDS: [UNRECOGNIZED DRUG - REMARK] PO SCH (09:19)
[2020-12-02] MEDS ORDERED: DIGOXIN 0.5 MG/2 ML AMP IV SCH (12:58)
[2020-12-03] MEDS: INSULIN LISPRO 100 UNIT/ML SUBCUT SCH ×4 (00:30→17:25)
[2020-12-03] MEDS: DEXMEDETOMIDINE 200 MCG in SODIUM CHLORIDE 0.9% 48 ML IV PRN (01:55)
[2020-12-03] MEDS: LORazepam 2 MG/1 ML VIAL IV PRN ×2 (03:17→16:54)
[2020-12-03] MEDS: HEPARIN 5,000 UNIT/1 ML VIAL SUBCUT SCH ×4 (03:17→21:26)
[2020-12-03 03:35] LABS: ABG Base Excess -0.1 MMOL/L (-2.5-2.5); ABG HCO3 24.1 MMOL/L (20-26); ABG PCO2 44.2 MM HG (35-48); ABG PH 7.366 (7.35-7.45); ABG PO2 49.5 MM HG (80-95); ABG TCO2 23.9 MMOL/L (23-27)
[2020-12-03 03:49] LABS: Basophils % 0.1 % (0.0-0.8); Eosinophils # 0.2 10*3/uL (0.0-0.87); Eosinophils % 1.6 % (0.00-10.9); Immature Granulocytes Absolute 0.47 #; Lymphocytes # 0.7 10*3/uL (1.4-4.0); Lymphocytes % 4.3 % (21.3-54.2); Mean Corpuscular HGB Conc 32.6 GM/DL (32-36); Mean Corpuscular Volume 105.5 FL (87-102); Mean Platelet Volume 10.8 FL (9.6-12.0); Monocytes % 4.5 % (1.7-12.7); Neutrophils % 86.5 % (38.7-73.9); Platelet Count 79 T/CUMM (130-400); Red Blood Count 1.63 MC/CUMM (3.8-5.5); Red Cell Distribution Width 17.3 % (9.3-17.3); White Blood Count 15.5 T/CUMM (4-12)
[2020-12-03 03:51] LABS: Hematocrit 17.2 VOL% (35.7-47.0); Hemoglobin 5.6 GM/DL (12.0-16.0)
[2020-12-03 04:08] LABS: Eosinophils 1 % (0-10); Hypochromasia 1+; Lymphocytes 5 % (20-55); Macrocytosis 1+; Platelet Estimate Decreased; Segmented Neutrophils 92 % (50-85); Total Cells Counted 100
[2020-12-03 04:27] LABS: Calcium 7.2 MG/DL (8.5-10.1); Osmolality,Calculated 295.1 MOS/KG (273-304); Potassium 4.5 MMOL/L (3.5-5.1)
[2020-12-03] MEDS: CETIRIZINE 10 MG TABLET PO SCH (08:01)
[2020-12-03] MEDS: FAMOTIDINE 20 MG TABLET PO SCH ×2 (08:02→20:05)
[2020-12-03] MEDS: carvediloL 12.5 MG TABLET PO SCH ×2 (08:02→16:14)
[2020-12-03] MEDS: FOLIC ACID 1 MG TABLET PO SCH (08:02)
[2020-12-03] MEDS: ANASTROZOLE 1 MG TABLET PO SCH (08:02)
[2020-12-03] MEDS: ASCORBIC ACID 500 MG TABLET PO SCH ×2 (08:03→20:05)
[2020-12-03] MEDS: amLODIPine 10 MG TABLET PO SCH (08:03)
[2020-12-03] MEDS: lisinopriL 10 MG TABLET PO SCH (08:03)
[2020-12-03] MEDS: ZINC GLUCONATE 50 MG TABLET PO SCH (08:03)
[2020-12-03] MEDS: MULTIVITAMIN (BEROCCA) TABLET PO SCH (08:04)
[2020-12-03] MEDS: ASPIRIN CHEW 81 MG TABLET PO SCH (08:04)
[2020-12-03] MEDS: CHOLECALCIFEROL 1,000 UNIT TABLET PO SCH (08:04)
[2020-12-03] MEDS ORDERED: QUEtiapine 25 MG TABLET PO ONE (08:05)
[2020-12-03] MEDS: QUEtiapine 25 MG TABLET PO SCH ×2 (08:26→20:05)
[2020-12-03] MEDS: [UNRECOGNIZED DRUG - REMARK] PO SCH (08:48)
[2020-12-03] MEDS ORDERED: QUEtiapine 25 MG TABLET PO SCH (09:00)
[2020-12-03] MEDS ORDERED: SODIUM CHLORIDE 0.9% 1,000 ML IV PRN ×2 (09:21→10:50)
[2020-12-03 11:50] VITALS: BP 116/34
[2020-12-03 12:54] LABS: Hematocrit 23.4 VOL% (35.7-47.0); Hemoglobin 7.5 GM/DL (12.0-16.0)
[2020-12-03] MEDS ORDERED: LORazepam 2 MG/1 ML VIAL ONE (16:33)
[2020-12-03] MEDS ORDERED: INSULIN GLARGINE 100 UNIT/ML SUBCUT SCH (21:00)
== END 2020-12-03 22:28 | disposition expired | DRG 177 ==
LOC: SUATTDRO 14:53 → N.2E 14:53 → N.CC 11-29 12:35
PROVIDERS: ADMIT Internal Medicine; ATTEND Internal Medicine